=== PATIENT | female | born 1970 | race Caucasian/White ===

== ENCOUNTER → 2022-11-25 10:39 | Outpatient (CLI) | payer OTHER, SELFPAY | PROVIDERS: Visit Provider Registered Nurse | DX: R30.0 Dysuria (principal) | CPT/HCPCS: 87077; 87086; 87186 ==

== ENCOUNTER → 2023-03-16 14:54 | Outpatient (CLI) | payer OTHER, SELFPAY ==
--- NOTE | 2023-03-16 15:03 | DI.RAD.S_ITS ---
PROCEDURE: XR CHEST 2V INDICATIONS: reactive airways, pft's planned, xray baseline-interstital? TECHNIQUE: 2 views of the chest were acquired. COMPARISON: None. FINDINGS: Surgical changes and devices: None. Lungs and pleura: Lungs are clear. No pleural effusions or pneumothorax. Mediastinum: Mediastinal contours are normal. Heart size is normal. Bones and chest wall: No suspicious bony abnormalities. Soft tissues appear unremarkable. IMPRESSION: No acute cardiopulmonary disease. Dictated by: Sj Rodriguez [facility] Interpreted: Nickie Ruiz MD on 03/16/2023 at 15:45 Transcribed by: CELY on 03/16/2023 at 15:46 Approved by: Nickie Ruiz M.D. on 03/16/2023 at 17:04
[2023-03-16 15:31] LABS: Add Manual Diff / Slide Review NO; Basophils Absolute Auto 0 /uL (0-100); Basophils Percent Auto 0.5 % (0-2); Eosinophils Absolute Auto 300 /uL (0-450); Eosinophils Percent Auto 5.3 % (2-4); Hematocrit 40.1 % (36-46); Hemoglobin 13.4 g/dL (12.0-16.0); Lymphocytes Absolute Auto 1300 /uL (1100-4500); Lymphocytes Percent Auto 23.7 % (25-40); Mean Corpuscular HGB Conc 33.4 % (30-36); Mean Corpuscular Hemoglobin 28.3 PG (26-34); Mean Corpuscular Volume 84.9 fL (80-100); Monocytes Absolute Auto 400 /uL (0-900); Monocytes Percent Auto 7.6 % (3-14); Neutrophils Absolute Auto 3600 /uL (1500-7000); Neutrophils Percent Auto 62.9 % (50-75); Platelet Count 203 X10^3/uL (150-400); Red Blood Cell Count 4.72 X10^6/uL (4.0-5.2); Red Cell Distribution Width 13.8 % (11.6-14.8); White Blood Cell Count 5.7 X10^3/uL (4.5-11.0)
[2023-03-16 16:25] LABS: Alanine Aminotransferase 17 IU/L (<35); Albumin 4.2 g/dL (3.5-5.0); Albumin Globulin Ratio 1.1 (1.0-2.8); Alkaline Phosphatase 107 U/L (38-126); Aspartate Aminotransferase 28 IU/L (14-36); BUN Creatinine Ratio 23.4 (6-22); Bilirubin Total 0.5 mg/dL (0.2-1.3); Blood Urea Nitrogen 15 mg/dL (7-17); Calcium 9.2 mg/dL (8.4-10.2); Carbon Dioxide 33 mmol/L (22-32); Chloride 101 mmol/L (98-107); Estimated Glomerular Filt Rate > 60 mL/min (>60); Globulin 3.7 g/dL (1.7-4.1); Glucose 124 mg/dL (70-100); HEMOLYSIS 21 (0-50); Sodium 139 mmol/L (137-145); Total Protein 7.9 g/dL (6.3-8.2)
[2023-03-16 16:31] LABS: Potassium 5.5 mmol/L (3.4-5.1)
[2023-03-16 16:58] LABS: TSH w/ Reflex to FT4 1.67 uIU/mL (0.47-4.68)
[2023-03-16 20:30] LABS: Erythrocyte Sedimentation Rate 6 MM/HR (0-20)
== END ==
PROVIDERS: PCP Pediatrics; Referring Provider Pediatrics; Visit Provider Pediatrics
DX: J45.909 Unspecified asthma, uncomplicated (principal)
CPT/HCPCS: 36415; 71046; 80053; 84443; 85025; 85651

== ENCOUNTER → 2023-11-02 08:56 | Outpatient (CLI) | payer OTHER, SELFPAY ==
--- NOTE | 2023-11-02 08:58 | DI.RAD.S_ITS ---
PROCEDURE: XR KNEE LT 3V INDICATIONS: Left Knee Pain TECHNIQUE: 3 views of the knee were acquired. COMPARISON: None. FINDINGS: Bones: No fractures or dislocations. Mild tricompartmental spur and medial compartment joint space narrowing. No suspicious bony lesions. Soft tissues: Small joint effusion. No suspicious soft tissue calcifications. IMPRESSION: Mild early degenerative changes. No acute osseous abnormality. Dictated by: Papa Zimmerman M.D. on 11/02/2023 at 10:37 Approved by: Papa Zimmerman M.D. on 11/02/2023 at 10:38
[2023-11-02 13:56] LABS: Add Manual Diff / Slide Review NO; Basophils Absolute Auto 0 /uL (0-100); Basophils Percent Auto 0.6 % (0-2); Eosinophils Absolute Auto 100 /uL (0-450); Hematocrit 41.4 % (36-46); Hemoglobin 13.6 g/dL (12.0-16.0); Lymphocytes Absolute Auto 1400 /uL (1100-4500); Lymphocytes Percent Auto 31.6 % (25-40); Mean Corpuscular HGB Conc 32.9 % (30-36); Mean Corpuscular Hemoglobin 28.3 PG (26-34); Mean Corpuscular Volume 86.1 fL (80-100); Monocytes Absolute Auto 300 /uL (0-900); Monocytes Percent Auto 7.1 % (3-14); Neutrophils Absolute Auto 2700 /uL (1500-7000); Neutrophils Percent Auto 58.7 % (50-75); Platelet Count 184 X10^3/uL (150-400); Red Blood Cell Count 4.81 X10^6/uL (4.0-5.2); Red Cell Distribution Width 14.7 % (11.6-14.8); White Blood Cell Count 4.6 X10^3/uL (4.5-11.0)
[2023-11-02 14:53] LABS: Alanine Aminotransferase 16 IU/L (<35); Albumin 4.5 g/dL (3.5-5.0); Albumin Globulin Ratio 1.3 (1.0-2.8); Alkaline Phosphatase 72 U/L (38-126); Aspartate Aminotransferase 25 IU/L (14-36); Bilirubin Total 0.7 mg/dL (0.2-1.3); Blood Urea Nitrogen 14 mg/dL (7-17); Calcium 9.1 mg/dL (8.4-10.2); Carbon Dioxide 29 mmol/L (22-32); Chloride 100 mmol/L (98-107); Cholesterol 190 mg/dL (140-199); Estimated Glomerular Filt Rate > 60 mL/min (>60); Globulin 3.4 g/dL (1.7-4.1); Glucose 90 mg/dL (70-100); HDL Cholesterol 65 mg/dL (40-60); HEMOLYSIS < 15 (0-50); LDL Cholesterol Calculated 110 mg/dL (<100); Potassium 3.9 mmol/L (3.4-5.1); Sodium 137 mmol/L (137-145); Total Protein 7.9 g/dL (6.3-8.2); Triglycerides 76 mg/dL (35-150)
[2023-11-04 20:18] LABS: HIV 1 & 2 Ab/Ag 4th Gen Combo NEGATIVE (NEGATIVE); Hep C Virus Ab w/Reflex Quant NEGATIVE s/c (NEGATIVE)
== END ==
PROVIDERS: PCP Family Medicine; Referring Provider Family Medicine; Visit Provider Family Medicine
DX: M25.562 Pain in left knee (principal); Z11.4 Encounter for screening for human immunodeficiency virus [HIV]; I10 Essential (primary) hypertension; Z13.220 Encounter for screening for lipoid disorders; Z11.59 Encounter for screening for other viral diseases
CPT/HCPCS: 36415; 73562; 80053; 80061; 85025; 86803; 87389

== ENCOUNTER 2024-01-26 14:30 | Outpatient (RCR) | payer BC, SELFPAY ==
--- NOTE | 2023-12-02 17:04 | PT.OIE ---
Current Diagnoses Unilateral primary osteoarthritis, left knee (12/02/23) Past Medical History (Last Updated 11/02/23 @ 10:47 by Tristen Breaux MD) Actinic keratoses Chicken pox (~1973) Lyme disease (~2009) Reactive airway disease with wheezing Past Surgical History (Last Updated 11/21/23 @ 22:23 by Treasure Armenta MD) [place] teeth extracted Visit Care Team Role Provider Type Tristen Breaux MD Attending Provider Physician Family Provider Primary Care Provider Referring Provider Specialty: Family Practice Obstetrics Address: [address] [place], [place] [address], [facility] Email: [email or web address] Physical Therapy Initial Evaluation PT-OP-A Visit Information Start: 12/01/23 17:56 Freq: Status: Active Protocol: Document 12/02/23 08:15 NM (Rec: 12/02/23 11:54 NM [id number]) Out-Patient Physical Therapy Visit Information Visit Information Visit Type Initial Evaluation Visit Note 30 visits Visit Start Time 08:15 Visit Stop Time 09:00 Visit Number 1 Evaluation Information Evaluation Date 12/02/23 Precautions Precautions No twisting, limit squat depth and unstable surfaces PT-OP-B Current Condition Start: 12/01/23 17:56 Freq: Status: Active Protocol: Document 12/02/23 08:15 NM (Rec: 12/02/23 11:54 NM [id number]) Current Condition History of Current Condition Onset Date 6 months ago Current Complaints stiffness, pain History of Current Condition Pt presents with L medial knee pain. Original ZOILA believed to have occured about 2 years ago, she twisted her knee getting off of a bar stool. About 6 months ago, she began to have increased stiffness in her knee with sitting, unable to walk without pain. Pain occurs with sitting 15-20 minutes, then initial 15-20 min of walking afterward. Stiffness and pain improve with movement overall. Imaging reveals degeneration. Pain occasionally occurs down the posterior knee. She is an avid hiker about 3-4x/wk, but is currently unable to hike due to pain. Her occupation requires sitting for long periods of time. Most knee pain when sitting at at desk ( max 4 hrs before get up);pain is also worse with unstable surfaces, with knee hyperextension. Reports no feelings of instability, just stiff and painful Prior Treatments and Tests October 2022 Radiograph: degeneration Prior Functional Status Baseline Function- ADL's Independent Baseline Function- Mobility Independent Baseline Function- Recreation/Hobbies hike 3-4x/wk Current Functional Impairments (Reported) Functional Limitations- Mobility/Gait sit 15-20 min then knee is painful, initial 20 min of walking Functional Limitations- Work/School Pain when sitting at her desk at work PT-OP-C Subjective Start: 12/01/23 17:56 Freq: Status: Active Protocol: Document 12/02/23 08:15 NM (Rec: 12/02/23 11:54 NM [id number]) OP-PT Subjective Patient Comments Patient Comments see hx above for pt report Patient Questionnaires Lower Extremity Functional Scale LEFS Score 67/80 OP-PT Pain Assessment Location L knee Pain Location Details medial joint line Intensity 1 Scale Used Numeric (0 - 10) Description Aching,Sharp Description- Other sharp pain: 4; twinge Frequency Intermittent Pain Duration 15-20 min stops after movement Radiating Location prn posterior knee pain, medial to mid antunez with sitting Pain Aggravating Factors Standing,Sitting,Walking Other Pain Aggravating Factors squatting Pain Alleviating Factors Medication Other Pain Alleviating Factors creams, topical ointments PT-OP-D Balance Start: 12/01/23 17:56 Freq: Status: Active Protocol: Document 12/02/23 08:15 NM (Rec: 12/02/23 11:54 NM [id number]) Balance Tests Single Limb Standing Single Limb- Right 10 seconds Single Limb- Left 5 seconds; not painful but unstable Tandem Tandem Standing 8 seconds PT-OP-E Functional Tests Start: 12/01/23 17:56 Freq: Status: Active Protocol: Document 12/02/23 08:15 NM (Rec: 12/02/23 11:54 NM [id number]) Functional Tests Squat Test Score 10 squats Comments pain with depth, clicking, B valgus, hip rotation PT-OP-F Manual Assessment Start: 12/01/23 17:56 Freq: Status: Active Protocol: Document 12/02/23 08:15 NM (Rec: 12/02/23 11:54 NM [id number]) Manual Assessments Soft Tissue Assessment Soft Tissue Mobility Assessment Limited B hamstring length. Tenderness of medial knee muscles near joint line Joint Mobility Assessment Joint Mobility Assessment Increased clicking/popping with knee rotation, squatting. PT-OP-G Mobility & Gait Start: 12/01/23 17:56 Freq: Status: Active Protocol: Document 12/02/23 08:15 NM (Rec: 12/02/23 11:54 NM [id number]) OP Gait Assessment Gait Gait Assistance Required: Standby Assistance Distance (Feet) 200 Assistive Devices Assistive Device None Gait Deviations General Gait Pattern Antalgic Factors Limiting Gait Function Factors Limiting Gait Function Decreased Activity Tolerance, Decreased Strength,Pain Comments Gait Comments Decreased stance time LLE, no TKE. Antalgic Stair Climbing Evaluation Evaluation Level of Assist On Stairs Independent Devices Stair Climbing Assistive Devices None Technique/Endurance Stair Climbing Direction Ascend and Descend Stair Climbing Technique Step Over Step Number of Steps Climbed 4 Stair Climbing Set # Repetitions (reps) 1 Comments Stair Climbing Comments Pain with descent, valgus at knees PT-OP-H Neuro Start: 12/01/23 17:56 Freq: Status: Active Protocol: Document 12/02/23 08:15 NM (Rec: 12/02/23 11:54 NM [id number]) Sensation Evaluation Gross Sensation Gross Sensation WNL Comments Summary Comments BLE intact to light touch sensation PT-OP-J Posture/Palpation/Skin Start: 12/01/23 17:56 Freq: Status: Active Protocol: Document 12/02/23 08:15 NM (Rec: 12/02/23 11:54 NM [id number]) Posture Evaluation Position Standing Head/C-Spine Posture Forward Head Pelvis Posture Anteriorly Tilted Weight Distribution Decreased Wt.Bear on (L) Hip Posture (L) Externally Rotated,(R) Externally Rotated Knee Posture (L) Genu Valgus,(R) Genu Valgus Patellar Posture (L) Superior,(R) Superior Foot Arch (L) Medium Arch,(R) Medium Arch Toe Posture (L) Flexed Toes,(R) Flexed Toes Palpation Assessment Location L knee Palpation Location medial knee Palpation Findings Soft Tissue Tightness, Tenderness Palpation Details Medial joint line tenderness PT-OP-K Range of Motion Start: 12/01/23 17:56 Freq: Status: Active Protocol: Document 12/02/23 08:15 NM (Rec: 12/02/23 11:54 NM [id number]) Hip Goniometric Range of Motion Hip Right Flexion w/Knee Flexed 110 Straight Leg Raise 145 Internal Rotation 20 External Rotation 25 Left Flexion w/Knee Flexed 110 Straight Leg Raise 160 Internal Rotation 35 External Rotation 30 Knee Goniometric Range of Motion Knee Right Flexion Active (degrees) 140 Extension Active (degrees) 0 Left Flexion Active (degrees) 135 Extension Active (degrees) 3 Extension Passive (degrees) 0 Knee ROM Limitations Knee ROM Limitations Pain Comments Pain with hyperextension, end range flexion PT-OP-L Special Tests Start: 12/01/23 17:56 Freq: Status: Active Protocol: Document 12/02/23 08:15 NM (Rec: 12/02/23 11:54 NM [id number]) Special Tests Knee Special Tests Patellar Grind Test Test Results + Valgus Test Results - Comments 0, 30 deg Varus Test Results - Comments 0, 30 deg Posterior Draw Test Results - Posterior Sag Test Results - Nisa's Test Results - Anterior Draw Test Results - Apley's Compression Test Results + Kaela Test Test Results + PT-OP-M Strength Start: 12/01/23 17:56 Freq: Status: Active Protocol: Document 12/02/23 08:15 NM (Rec: 12/02/23 11:54 NM [id number]) Hip Strength Hip Manual Muscle Testing Right Flexion (L2) 4 Good Extension (S1) 4 Good Abduction 4 Good Adduction 4 Good External Rotation 4 Good Internal Rotation 4 Good Left Flexion (L2) 4 Good Extension (S1) 4 Good Abduction 4 Good Adduction 4 Good External Rotation 4 Good Internal Rotation 4 Good Knee Strength Knee Manual Muscle Testing Right Flexion (S2) 4+ Good+ Extension (L3) 4+ Good+ Left Flexion (S2) 4 Good Extension (L3) 4 Good Comments no pain Ankle/Foot Strength Ankle and Foot Manual Muscle Testing Right Dorsiflexion (L4) 4 Good Plantarflexion (S1) 4 Good Inversion 4 Good Eversion (S1) 4 Good Left Dorsiflexion (L4) 4 Good Plantarflexion (S1) 4 Good Inversion 4 Good Eversion (S1) 4 Good PT-OP-Q Treatments Start: 12/01/23 17:56 Freq: Status: Active Protocol: Document 12/02/23 08:15 NM (Rec: 12/02/23 11:54 NM [id number]) Self-Care/Home Management Treatment Education Patient Education Joint Protection,Pain Management,Safety Other Education 8 minutes: Educated on knee anatomy, role of meniscus during activity, and modalities for pain relief. Educated on limiting squat depth with ADLs to limit shear force on meniscus. Recommended more frequent rest breaks from sitting position, brief discussion over sitting ergonomics. Pt verbalizes agreement. PT-OP-T Assessment and Plan Start: 12/01/23 17:56 Freq: Status: Active Protocol: Document 12/02/23 08:15 NM (Rec: 12/02/23 11:54 NM [id number]) Physical Therapy Assessment Rehab Potential Rehabilitation Potential Good Evaluation Complexity Number of Personal Factors/Comorbidities 1-2 Number of Body Systems Impaired 1-2 Clinical Presentation at Evaluation Stable Impairments Impairments Activity Tolerance,Balance, Edema,Functional Activities, Functional Mobility,Gait, Integument,Pain,Posture,ROM, Sensation,Soft Tissue Mobility ,Strength,Transfers Goals Five Impairment AROM Impairment L knee extension -3 deg Long-Term Goal (LTG) Pt will achieve L terminal knee extension AROM of 0 deg in order to demonstrate improved L knee stability during gait, stairs, and ADLs. LTG Duration 8 weeks Four Impairment activity Impairment pain with ambulation, hiking for 20 minutes Long-Term Goal (LTG) Pt will report that she is able to ambulate or hike at least 30 minutes with L knee pain <4/10 in order to demonstrate improved activity tolerance LTG Duration 8 weeks Three Impairment balance Impairment SLS 8 sec LLE Short Term Goal (STG) Pt will improve L single leg stance to at least 15 seconds in order to demonstrate improved L knee stability during gait and hiking STG Duration 4 weeks Nursing Officer Goal (LTG) Pt will improve L single leg stance to at least 20 seconds in order to demonstrate improved L knee stability during gait and hiking LTG Duration 8 weeks Two Impairment function Impairment 10 squats Short Term Goal (STG) Pt will be able to perform at least 10 bilateral squats with pain <3/10 and without compensation in order to demonstrate increased BLE strength and stability for gait, ADLs STG Duration 4 weeks Nursing Officer Goal (LTG) Pt will be able to perform at least 10 bilateral squats without pain and without compensation in order to demonstrate increased BLE strength and stability for gait, ADLs LTG Duration 8 weeks One Impairment sitting Impairment pain with sitting 15-20 minutes Nursing Officer Goal (LTG) Pt will report that she is able to sit for at least 1 hour without L knee pain due to ergonomic changes at her desk, more frequent breaks in order to demonstrate improved QOL and activity tolerance. LTG Duration 8 weeks Assessment Summary Assessment Pt is a 53 y.o. female with L knee pain beginning several years ago and worsening over the last 6 months. Pain is worse in sitting for extended periods, ambulation, hiking. Pt presents with decrease L knee flexion and extension AROM compared to RLE, with worse pain with overpressure to end range flexion/extension . She is lacking terminal knee extension. Pt has no pain with resisted knee flex/ extension; however, L knee is weaker than R knee. She also demos weakness in B hip abductors and extensors. Squatting is painful at/below 80 deg, and pt compensates with hip rotation and knee valgus regardless of depth. 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 Pain is reproduced with L knee medial joint line palpation. Meniscus tests are positive and reproduce clicking. Other L knee ligament stability tests are negative. PT educated pt on exam findings, POC, and briefly on activity modification/sitting position at work in order to decrease pain symptoms. Recommended more frequent standing and walking breaks, changes in sitting posture. Pt verbalizes agreement. Depending on pt progress with PT and pain symptoms/knee stability, PT will refer back for additional imaging and referral to ortho . Pt would benefit from skilled PT for L knee strengthening, stabilization, and mobility in order to decrease pain symptoms, improve activity tolerance and return to PLOF. Physical Therapy Plan Frequency and Duration Frequency of Treatment 2x/Week Duration of treatment (weeks) 8 Plan of Care Start Date 12/02/23 Plan of Care End Date 01/28/24 Therapeutic Interventions Therapeutic Interventions Aquatic Therapy,Balance Training,Coordination Training ,Gait Training,Home Exercise Program,Joint Mobilizations, Manual Therapy,Neuromuscular Re-education,Orthotic/ Prosthetic Management,Patient/ Caregiver Education,Self-Care/ Home Management,Sensory Integration,Soft Tissue Mobilization,Taping, Therapeutic Activities, Therapeutic Exercises Modalities Cold Pack/Ice Massage,Electric Stimulation,Hot Packs, Ultrasound,Vasopneumatic Devices Next Visit Focus/Plan Next Note Type Treatment Note Next Visit Plan hip abd strength, extension, TKE without locking education acitvity modification Manual prn
--- NOTE | 2023-12-02 17:05 | PT.OPPOC ---
Physical, Occupational & Speech Therapy At [facility] Current Diagnoses Unilateral primary osteoarthritis, left knee (12/02/23) Visit Care Team Role Provider Type Tristen Breaux MD Attending Provider Physician Family Provider Primary Care Provider Referring Provider Specialty: Family Practice Obstetrics Address: [address] [place], [place] [address], [place], [address] Email: [email or web address] Plan Of Care PT-OP-T Assessment and Plan Start: 12/01/23 17:56 Freq: Status: Active Protocol: Document 12/02/23 08:15 NM (Rec: 12/02/23 11:54 NM [id number]) Physical Therapy Assessment Rehab Potential Rehabilitation Potential Good Evaluation Complexity Number of Personal Factors/Comorbidities 1-2 Number of Body Systems Impaired 1-2 Clinical Presentation at Evaluation Stable Impairments Impairments Activity Tolerance,Balance, Edema,Functional Activities, Functional Mobility,Gait, Integument,Pain,Posture,ROM, Sensation,Soft Tissue Mobility ,Strength,Transfers Goals Five Impairment AROM Impairment L knee extension -3 deg Mcc Goal (LTG) Pt will achieve L terminal knee extension AROM of 0 deg in order to demonstrate improved L knee stability during gait, stairs, and ADLs. LTG Duration 8 weeks Four Impairment activity Impairment pain with ambulation, hiking for 20 minutes Ground Wood Supervisor Goal (LTG) Pt will report that she is able to ambulate or hike at least 30 minutes with L knee pain <4/10 in order to demonstrate improved activity tolerance LTG Duration 8 weeks Three Impairment balance Impairment SLS 8 sec LLE Short Term Goal (STG) Pt will improve L single leg stance to at least 15 seconds in order to demonstrate improved L knee stability during gait and hiking STG Duration 4 weeks Ground Wood Supervisor Goal (LTG) Pt will improve L single leg stance to at least 20 seconds in order to demonstrate improved L knee stability during gait and hiking LTG Duration 8 weeks Two Impairment function Impairment 10 squats Short Term Goal (STG) Pt will be able to perform at least 10 bilateral squats with pain <3/10 and without compensation in order to demonstrate increased BLE strength and stability for gait, ADLs STG Duration 4 weeks Mcc Goal (LTG) Pt will be able to perform at least 10 bilateral squats without pain and without compensation in order to demonstrate increased BLE strength and stability for gait, ADLs LTG Duration 8 weeks One Impairment sitting Impairment pain with sitting 15-20 minutes Mcc Goal (LTG) Pt will report that she is able to sit for at least 1 hour without L knee pain due to ergonomic changes at her desk, more frequent breaks in order to demonstrate improved QOL and activity tolerance. LTG Duration 8 weeks Assessment Summary Assessment Pt is a 53 y.o. female with L knee pain beginning several years ago and worsening over the last 6 months. Pain is worse in sitting for extended periods, ambulation, hiking. Pt presents with decrease L knee flexion and extension AROM compared to RLE, with worse pain with overpressure to end range flexion/extension . She is lacking terminal knee extension. Pt has no pain with resisted knee flex/ extension; however, L knee is weaker than R knee. She also demos weakness in B hip abductors and extensors. Squatting is painful at/below 80 deg, and pt compensates with hip rotation and knee valgus regardless of depth. 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 Pain is reproduced with L knee medial joint line palpation. Meniscus tests are positive and reproduce clicking. Other L knee ligament stability tests are negative. PT educated pt on exam findings, POC, and briefly on activity modification/sitting position at work in order to decrease pain symptoms. Recommended more frequent standing and walking breaks, changes in sitting posture. Pt verbalizes agreement. Depending on pt progress with PT and pain symptoms/knee stability, PT will refer back for additional imaging and referral to ortho . Pt would benefit from skilled PT for L knee strengthening, stabilization, and mobility in order to decrease pain symptoms, improve activity tolerance and return to PLOF. Physical Therapy Plan Frequency and Duration Frequency of Treatment 2x/Week Duration of treatment (weeks) 8 Plan of Care Start Date 12/02/23 Plan of Care End Date 01/28/24 Therapeutic Interventions Therapeutic Interventions Aquatic Therapy,Balance Training,Coordination Training ,Gait Training,Home Exercise Program,Joint Mobilizations, Manual Therapy,Neuromuscular Re-education,Orthotic/ Prosthetic Management,Patient/ Caregiver Education,Self-Care/ Home Management,Sensory Integration,Soft Tissue Mobilization,Taping, Therapeutic Activities, Therapeutic Exercises Modalities Cold Pack/Ice Massage,Electric Stimulation,Hot Packs, Ultrasound,Vasopneumatic Devices Next Visit Focus/Plan Next Note Type Treatment Note Next Visit Plan hip abd strength, extension, TKE without locking education acitvity modification Manual prn Plan of Care Dates Plan of Care Start Date 12/02/23 Plan of Care End Date 01/28/24 Electronically Signed by: Evon Rivera, PT 12/06/23 0375 If you are in agreement with this Plan of Care, please return a signed and dated copy. I have reviewed this Plan of Care and certify that the skilled therapy services above are required to meet the patient?s needs. Physician Signature Date Printed Name and Credentials Clinical Instructor Signature Printed Name and Credentials
--- NOTE | 2023-12-07 13:37 | PT.OTN ---
Current Diagnoses Unilateral primary osteoarthritis, left knee (12/07/23) Physical Therapy Treatment Note PT-OP-A Visit Information Start: 12/01/23 17:56 Freq: Status: Active Protocol: Document 12/07/23 07:30 NM (Rec: 12/07/23 08:17 NM [id number]) Out-Patient Physical Therapy Visit Information Visit Information Visit Type Treatment Note Visit Note 30 visits Visit Start Time 07:32 Visit Stop Time 08:15 Visit Number 2 Evaluation Information Evaluation Date 12/02/23 Precautions Precautions No twisting, limit squat depth and unstable surfaces PT-OP-B Current Condition Start: 12/01/23 17:56 Freq: Status: Active Protocol: Document 12/02/23 08:15 NM (Rec: 12/02/23 11:54 NM [id number]) Current Condition History of Current Condition Onset Date 6 months ago Current Complaints stiffness, pain History of Current Condition Pt presents with L medial knee pain. Original ZOILA believed to have occured about 2 years ago, she twisted her knee getting off of a bar stool. About 6 months ago, she began to have increased stiffness in her knee with sitting, unable to walk without pain. Pain occurs with sitting 15-20 minutes, then initial 15-20 min of walking afterward. Stiffness and pain improve with movement overall. Imaging reveals degeneration. Pain occasionally occurs down the posterior knee. She is an avid hiker about 3-4x/wk, but is currently unable to hike due to pain. Her occupation requires sitting for long periods of time. Most knee pain when sitting at at desk ( max 4 hrs before get up);pain is also worse with unstable surfaces, with knee hyperextension. Reports no feelings of instability, just stiff and painful Prior Treatments and Tests October 2022 Radiograph: degeneration Prior Functional Status Baseline Function- ADL's Independent Baseline Function- Mobility Independent Baseline Function- Recreation/Hobbies hike 3-4x/wk Current Functional Impairments (Reported) Functional Limitations- Mobility/Gait sit 15-20 min then knee is painful, initial 20 min of walking Functional Limitations- Work/School Pain when sitting at her desk at work PT-OP-C Subjective Start: 12/01/23 17:56 Freq: Status: Active Protocol: Document 12/07/23 07:30 NM (Rec: 12/07/23 08:17 NM [id number]) OP-PT Subjective Patient Comments Patient Comments Pt reports 2/10 pain this morning in L knee, no change since IE. She is planning on going on a hike later today PT-OP-D Balance Start: 12/01/23 17:56 Freq: Status: Active Protocol: Document 12/02/23 08:15 NM (Rec: 12/02/23 11:54 NM [id number]) Balance Tests Single Limb Standing Single Limb- Right 10 seconds Single Limb- Left 5 seconds; not painful but unstable Tandem Tandem Standing 8 seconds PT-OP-E Functional Tests Start: 12/01/23 17:56 Freq: Status: Active Protocol: Document 12/02/23 08:15 NM (Rec: 12/02/23 11:54 NM [id number]) Functional Tests Squat Test Score 10 squats Comments pain with depth, clicking, B valgus, hip rotation PT-OP-F Manual Assessment Start: 12/01/23 17:56 Freq: Status: Active Protocol: Document 12/02/23 08:15 NM (Rec: 12/02/23 11:54 NM [id number]) Manual Assessments Soft Tissue Assessment Soft Tissue Mobility Assessment Limited B hamstring length. Tenderness of medial knee muscles near joint line Joint Mobility Assessment Joint Mobility Assessment Increased clicking/popping with knee rotation, squatting. PT-OP-G Mobility & Gait Start: 12/01/23 17:56 Freq: Status: Active Protocol: Document 12/02/23 08:15 NM (Rec: 12/02/23 11:54 NM [id number]) OP Gait Assessment Gait Gait Assistance Required: Standby Assistance Distance (Feet) 200 Assistive Devices Assistive Device None Gait Deviations General Gait Pattern Antalgic Factors Limiting Gait Function Factors Limiting Gait Function Decreased Activity Tolerance, Decreased Strength,Pain Comments Gait Comments Decreased stance time LLE, no TKE. Antalgic Stair Climbing Evaluation Evaluation Level of Assist On Stairs Independent Devices Stair Climbing Assistive Devices None Technique/Endurance Stair Climbing Direction Ascend and Descend Stair Climbing Technique Step Over Step Number of Steps Climbed 4 Stair Climbing Set # Repetitions (reps) 1 Comments Stair Climbing Comments Pain with descent, valgus at knees PT-OP-H Neuro Start: 12/01/23 17:56 Freq: Status: Active Protocol: Document 12/02/23 08:15 NM (Rec: 12/02/23 11:54 NM [id number]) Sensation Evaluation Gross Sensation Gross Sensation WNL Comments Summary Comments BLE intact to light touch sensation PT-OP-J Posture/Palpation/Skin Start: 12/01/23 17:56 Freq: Status: Active Protocol: Document 12/02/23 08:15 NM (Rec: 12/02/23 11:54 NM [id number]) Posture Evaluation Position Standing Head/C-Spine Posture Forward Head Pelvis Posture Anteriorly Tilted Weight Distribution Decreased Wt.Bear on (L) Hip Posture (L) Externally Rotated,(R) Externally Rotated Knee Posture (L) Genu Valgus,(R) Genu Valgus Patellar Posture (L) Superior,(R) Superior Foot Arch (L) Medium Arch,(R) Medium Arch Toe Posture (L) Flexed Toes,(R) Flexed Toes Palpation Assessment Location L knee Palpation Location medial knee Palpation Findings Soft Tissue Tightness, Tenderness Palpation Details Medial joint line tenderness PT-OP-K Range of Motion Start: 12/01/23 17:56 Freq: Status: Active Protocol: Document 12/02/23 08:15 NM (Rec: 12/02/23 11:54 NM [id number]) Hip Goniometric Range of Motion Hip Right Flexion w/Knee Flexed 110 Straight Leg Raise 145 Internal Rotation 20 External Rotation 25 Left Flexion w/Knee Flexed 110 Straight Leg Raise 160 Internal Rotation 35 External Rotation 30 Knee Goniometric Range of Motion Knee Right Flexion Active (degrees) 140 Extension Active (degrees) 0 Left Flexion Active (degrees) 135 Extension Active (degrees) 3 Extension Passive (degrees) 0 Knee ROM Limitations Knee ROM Limitations Pain Comments Pain with hyperextension, end range flexion PT-OP-L Special Tests Start: 12/01/23 17:56 Freq: Status: Active Protocol: Document 12/02/23 08:15 NM (Rec: 12/02/23 11:54 NM [id number]) Special Tests Knee Special Tests Patellar Grind Test Test Results + Valgus Test Results - Comments 0, 30 deg Varus Test Results - Comments 0, 30 deg Posterior Draw Test Results - Posterior Sag Test Results - Nisa's Test Results - Anterior Draw Test Results - Apley's Compression Test Results + Kaela Test Test Results + PT-OP-M Strength Start: 12/01/23 17:56 Freq: Status: Active Protocol: Document 12/02/23 08:15 NM (Rec: 12/02/23 11:54 NM [id number]) Hip Strength Hip Manual Muscle Testing Right Flexion (L2) 4 Good Extension (S1) 4 Good Abduction 4 Good Adduction 4 Good External Rotation 4 Good Internal Rotation 4 Good Left Flexion (L2) 4 Good Extension (S1) 4 Good Abduction 4 Good Adduction 4 Good External Rotation 4 Good Internal Rotation 4 Good Knee Strength Knee Manual Muscle Testing Right Flexion (S2) 4+ Good+ Extension (L3) 4+ Good+ Left Flexion (S2) 4 Good Extension (L3) 4 Good Comments no pain Ankle/Foot Strength Ankle and Foot Manual Muscle Testing Right Dorsiflexion (L4) 4 Good Plantarflexion (S1) 4 Good Inversion 4 Good Eversion (S1) 4 Good Left Dorsiflexion (L4) 4 Good Plantarflexion (S1) 4 Good Inversion 4 Good Eversion (S1) 4 Good PT-OP-Q Treatments Start: 12/01/23 17:56 Freq: Status: Active Protocol: Document 12/07/23 07:30 NM (Rec: 12/07/23 08:17 NM [id number]) Cardio Equipment Bicycle (Upright) Duration (Minutes) 4 Resistance 7 Seat Position 7 Other warm up; reports no pain in L knee Therapeutic Exercises Supine Exercises single leg bridge Supine Exercise Name trialed in PT Side bilateral Reps/Minutes 2x5 Comments cued for level pelvis; reports cramping after sets SAQ Supine Exercise Name trialed: for TKE Side left Resistance AROM with brief hold Equipment Used over foam roller Reps/Minutes 1x10 with 5 hold Comments reports easy; no pain with TKE as long as doesn't hyperext, easy straight leg raise Supine Exercise Name neutral hip Side left Resistance AROM with brief hold Reps/Minutes 2x10 with brief pause at top Comments for TKE; reports medium difficulty; reports no pain Sidelying Exercises hip abduction Sidelying Exercise Name with hip IR for glute medius; added to HEP Side left Resistance AROM with brief hold Equipment Used with slight hip ext Reps/Minutes 2x10 Comments cued for no hip rotation, slow controlled movement Sitting Exercises LAQ Sitting Exercise Name added to HEP Side left Resistance lvl 2 teal band Equipment Used band tied behind table Reps/Minutes 2x10 Comments cued TKE; demos slight lateral patellar tracking, no pain Standing Exercises wall squat Standing Exercise Name 60 deg knee flex Side left Equipment Used wall Reps/Minutes 2x30 Comments reports slight pull on medial knee next to patella TKE Standing Exercise Name added to HEP Side left Equipment Used standing against wall, towel roll behind knee Reps/Minutes 1x10 with 5 hold Comments cued for quad set, min knee flex to limit HS/glute hamstring stretch Standing Exercise Name before/after bridges Side bilateral Reps/Minutes 1x30 Comments reports decreased hamstring cramps Other Exercises Foam roller Other Exercise Name hamstring, calf, quad STM Side left Equipment Used full foam roller, mat on floor Reps/Minutes 2 Comments feels really good Manual Therapy Treatment Soft Tissue Mobilization L thigh Body Location quad, hamstring, adductor, TFL Mobilization Type Rolling,Sustained Pressure Intensity/Depth Superficial Body Position Hooklying Comments Increased hamstring tightness, TFL. No tenderness Joint Mobilizations L knee Joint patellar mobilizations Direction S-I, M-L Grade II Body Position Supine Reps/Duration 1x10 ea Comments Decreased mobility M, I. Tends to track laterally Self-Care/Home Management Treatment Education Patient Education Home Exercise Program,Joint Protection Other Education HEP: straight leg raise, sidelying hip abduction, TKE against wall, LAQ. Educated on modalities for pain management especially following activity. PT educated pt on taking frequent standing and walking breaks at work, minimum 1x/hr to decrease frequency of sitting. Educated also on safety, not overdoing it on hike later, being aware of body's limitations and pain levels. PT-OP-T Assessment and Plan Start: 12/01/23 17:56 Freq: Status: Active Protocol: Document 12/07/23 07:30 NM (Rec: 12/07/23 08:17 NM [id number]) Physical Therapy Assessment Goals Five Impairment AROM Impairment L knee extension -3 deg Assisted Goal (LTG) Pt will achieve L terminal knee extension AROM of 0 deg in order to demonstrate improved L knee stability during gait, stairs, and ADLs. LTG Duration 8 weeks Four Impairment activity Impairment pain with ambulation, hiking for 20 minutes Assisted Goal (LTG) Pt will report that she is able to ambulate or hike at least 30 minutes with L knee pain <4/10 in order to demonstrate improved activity tolerance LTG Duration 8 weeks Three Impairment balance Impairment SLS 8 sec LLE Short Term Goal (STG) Pt will improve L single leg stance to at least 15 seconds in order to demonstrate improved L knee stability during gait and hiking STG Duration 4 weeks Senior [employer] Goal (LTG) Pt will improve L single leg stance to at least 20 seconds in order to demonstrate improved L knee stability during gait and hiking LTG Duration 8 weeks Two Impairment function Impairment 10 squats Short Term Goal (STG) Pt will be able to perform at least 10 bilateral squats with pain <3/10 and without compensation in order to demonstrate increased BLE strength and stability for gait, ADLs STG Duration 4 weeks Assisted Goal (LTG) Pt will be able to perform at least 10 bilateral squats without pain and without compensation in order to demonstrate increased BLE strength and stability for gait, ADLs LTG Duration 8 weeks One Impairment sitting Impairment pain with sitting 15-20 minutes 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 LTG Duration 8 weeks Assessment Summary Assessment Pt tolerated session well without any increased L knee pain except pulling during standing wall squats. Trialed wall squats at at/above 60 deg knee flexion with feet forward for more glute activation and less tibial translation over toes. Pt challenged with squat, but able to maintain equal weight bearing. Initiated hip and quad strengthening. Pt demos weakness of B hip abductors, glutes, and quads; she is able to perform exercises with minimal cueing for correct form, but requires frequent cues for eccentric control. Initiated seated LAQ and standing terminal knee ext to retrain quad and emphasize correct knee extension without hyperextension. Pt cued to limit knee hyperextension in order to promote improved quad contorl and facilitation over knee ligaments. Educated on limiting hyperext, frequent breaks at work for pain reduction. PT asked pt to take photo of workspace to address any ergonomic influences on knee pain. Initiated manual treatment to address limitations in patellar movement, improve soft tissue restrictions. Pt particularly limited in L hamstring length likely due to frequent sitting . Pt would benefit from skilled PT to address L hip/ quad strength and stability in order to decrease pain symptoms and improve activity tolerance. Physical Therapy Plan Frequency and Duration Frequency of Treatment 2x/Week Duration of treatment (weeks) 8 Plan of Care Start Date 12/02/23 Plan of Care End Date 01/28/24 Therapeutic Interventions Therapeutic Interventions Aquatic Therapy,Balance Training,Coordination Training ,Gait Training,Home Exercise Program,Joint Mobilizations, Manual Therapy,Neuromuscular Re-education,Orthotic/ Prosthetic Management,Patient/ Caregiver Education,Self-Care/ Home Management,Sensory Integration,Soft Tissue Mobilization,Taping, Therapeutic Activities, Therapeutic Exercises Modalities Cold Pack/Ice Massage,Electric Stimulation,Hot Packs, Ultrasound,Vasopneumatic Devices Next Visit Focus/Plan Next Note Type Treatment Note Next Visit Plan Progress LAQ, retrain squat at limited depth, hip abduction (trial side steps), glute strengthening, leg press? at low resistance education activity modification, gait training prn Manual: patellar, STM, knee mob prn
--- NOTE | 2023-12-09 08:17 | PT.OTN ---
Current Diagnoses Unilateral primary osteoarthritis, left knee (12/09/23) Weakness (12/09/23) Physical Therapy Treatment Note PT-OP-A Visit Information Start: 12/01/23 17:56 Freq: Status: Active Protocol: Document 12/09/23 07:32 SP (Rec: 12/09/23 08:20 SP [id number]) Out-Patient Physical Therapy Visit Information Visit Information Visit Type Treatment Note Visit Note 12/31 visits Visit Start Time 07:32 Visit Stop Time 08:17 Visit Number 3 Number of IMMIGRATION SPECIALIST Visits 1 Evaluation Information Evaluation Date 12/02/23 Precautions Precautions No twisting, limit squat depth and unstable surfaces PT-OP-B Current Condition Start: 12/01/23 17:56 Freq: Status: Active Protocol: Document 12/02/23 08:15 NM (Rec: 12/02/23 11:54 NM [id number]) Current Condition History of Current Condition Onset Date 6 months ago Current Complaints stiffness, pain History of Current Condition Pt presents with L medial knee pain. Original ZOILA believed to have occured about 2 years ago, she twisted her knee getting off of a bar stool. About 6 months ago, she began to have increased stiffness in her knee with sitting, unable to walk without pain. Pain occurs with sitting 15-20 minutes, then initial 15-20 min of walking afterward. Stiffness and pain improve with movement overall. Imaging reveals degeneration. Pain occasionally occurs down the posterior knee. She is an avid hiker about 3-4x/wk, but is currently unable to hike due to pain. Her occupation requires sitting for long periods of time. Most knee pain when sitting at at desk ( max 4 hrs before get up);pain is also worse with unstable surfaces, with knee hyperextension. Reports no feelings of instability, just stiff and painful Prior Treatments and Tests October 2022 Radiograph: degeneration Prior Functional Status Baseline Function- ADL's Independent Baseline Function- Mobility Independent Baseline Function- Recreation/Hobbies hike 3-4x/wk Current Functional Impairments (Reported) Functional Limitations- Mobility/Gait sit 15-20 min then knee is painful, initial 20 min of walking Functional Limitations- Work/School Pain when sitting at her desk at work PT-OP-C Subjective Start: 12/01/23 17:56 Freq: Status: Active Protocol: Document 12/09/23 07:32 SP (Rec: 12/09/23 08:20 SP [id number]) OP-PT Subjective Patient Comments Patient Comments Pt reports she went on 4 miles around [employer] and felt fine but was really sore and painful next day. She stated tried performing HEP and end range painful. She reports didn't do any stretching or rolling post for recovery. She does have small stationary LE peddles device and found helpful for ROM home carryover . Her pain in pesancerine and medial distal HS into QS. PT-OP-D Balance Start: 12/01/23 17:56 Freq: Status: Active Protocol: Document 12/02/23 08:15 NM (Rec: 12/02/23 11:54 NM [id number]) Balance Tests Single Limb Standing Single Limb- Right 10 seconds Single Limb- Left 5 seconds; not painful but unstable Tandem Tandem Standing 8 seconds PT-OP-E Functional Tests Start: 12/01/23 17:56 Freq: Status: Active Protocol: Document 12/02/23 08:15 NM (Rec: 12/02/23 11:54 NM [id number]) Functional Tests Squat Test Score 10 squats Comments pain with depth, clicking, B valgus, hip rotation PT-OP-F Manual Assessment Start: 12/01/23 17:56 Freq: Status: Active Protocol: Document 12/02/23 08:15 NM (Rec: 12/02/23 11:54 NM [id number]) Manual Assessments Soft Tissue Assessment Soft Tissue Mobility Assessment Limited B hamstring length. Tenderness of medial knee muscles near joint line Joint Mobility Assessment Joint Mobility Assessment Increased clicking/popping with knee rotation, squatting. PT-OP-G Mobility & Gait Start: 12/01/23 17:56 Freq: Status: Active Protocol: Document 12/02/23 08:15 NM (Rec: 12/02/23 11:54 NM [id number]) OP Gait Assessment Gait Gait Assistance Required: Standby Assistance Distance (Feet) 200 Assistive Devices Assistive Device None Gait Deviations General Gait Pattern Antalgic Factors Limiting Gait Function Factors Limiting Gait Function Decreased Activity Tolerance, Decreased Strength,Pain Comments Gait Comments Decreased stance time LLE, no TKE. Antalgic Stair Climbing Evaluation Evaluation Level of Assist On Stairs Independent Devices Stair Climbing Assistive Devices None Technique/Endurance Stair Climbing Direction Ascend and Descend Stair Climbing Technique Step Over Step Number of Steps Climbed 4 Stair Climbing Set # Repetitions (reps) 1 Comments Stair Climbing Comments Pain with descent, valgus at knees PT-OP-H Neuro Start: 12/01/23 17:56 Freq: Status: Active Protocol: Document 12/02/23 08:15 NM (Rec: 12/02/23 11:54 NM [id number]) Sensation Evaluation Gross Sensation Gross Sensation WNL Comments Summary Comments BLE intact to light touch sensation PT-OP-J Posture/Palpation/Skin Start: 12/01/23 17:56 Freq: Status: Active Protocol: Document 12/02/23 08:15 NM (Rec: 12/02/23 11:54 NM [id number]) Posture Evaluation Position Standing Head/C-Spine Posture Forward Head Pelvis Posture Anteriorly Tilted Weight Distribution Decreased Wt.Bear on (L) Hip Posture (L) Externally Rotated,(R) Externally Rotated Knee Posture (L) Genu Valgus,(R) Genu Valgus Patellar Posture (L) Superior,(R) Superior Foot Arch (L) Medium Arch,(R) Medium Arch Toe Posture (L) Flexed Toes,(R) Flexed Toes Palpation Assessment Location L knee Palpation Location medial knee Palpation Findings Soft Tissue Tightness, Tenderness Palpation Details Medial joint line tenderness PT-OP-K Range of Motion Start: 12/01/23 17:56 Freq: Status: Active Protocol: Document 12/02/23 08:15 NM (Rec: 12/02/23 11:54 NM [id number]) Hip Goniometric Range of Motion Hip Right Flexion w/Knee Flexed 110 Straight Leg Raise 145 Internal Rotation 20 External Rotation 25 Left Flexion w/Knee Flexed 110 Straight Leg Raise 160 Internal Rotation 35 External Rotation 30 Knee Goniometric Range of Motion Knee Right Flexion Active (degrees) 140 Extension Active (degrees) 0 Left Flexion Active (degrees) 135 Extension Active (degrees) 3 Extension Passive (degrees) 0 Knee ROM Limitations Knee ROM Limitations Pain Comments Pain with hyperextension, end range flexion PT-OP-L Special Tests Start: 12/01/23 17:56 Freq: Status: Active Protocol: Document 12/02/23 08:15 NM (Rec: 12/02/23 11:54 NM [id number]) Special Tests Knee Special Tests Patellar Grind Test Test Results + Valgus Test Results - Comments 0, 30 deg Varus Test Results - Comments 0, 30 deg Posterior Draw Test Results - Posterior Sag Test Results - Nisa's Test Results - Anterior Draw Test Results - Apley's Compression Test Results + Kaela Test Test Results + PT-OP-M Strength Start: 12/01/23 17:56 Freq: Status: Active Protocol: Document 12/02/23 08:15 NM (Rec: 12/02/23 11:54 NM [id number]) Hip Strength Hip Manual Muscle Testing Right Flexion (L2) 4 Good Extension (S1) 4 Good Abduction 4 Good Adduction 4 Good External Rotation 4 Good Internal Rotation 4 Good Left Flexion (L2) 4 Good Extension (S1) 4 Good Abduction 4 Good Adduction 4 Good External Rotation 4 Good Internal Rotation 4 Good Knee Strength Knee Manual Muscle Testing Right Flexion (S2) 4+ Good+ Extension (L3) 4+ Good+ Left Flexion (S2) 4 Good Extension (L3) 4 Good Comments no pain Ankle/Foot Strength Ankle and Foot Manual Muscle Testing Right Dorsiflexion (L4) 4 Good Plantarflexion (S1) 4 Good Inversion 4 Good Eversion (S1) 4 Good Left Dorsiflexion (L4) 4 Good Plantarflexion (S1) 4 Good Inversion 4 Good Eversion (S1) 4 Good PT-OP-Q Treatments Start: 12/01/23 17:56 Freq: Status: Active Protocol: Document 12/09/23 07:32 SP (Rec: 12/09/23 08:20 SP [id number]) Cardio Equipment Bicycle (Upright) Duration (Minutes) 6 Resistance 7 Seat Position 7 Other warm up; reports no pain in L knee Therapeutic Exercises Supine Exercises single leg bridge Supine Exercise Name reviewed HEP Side bilateral Reps/Minutes x10 Comments cued for level pelvis; good glut fac /c foot closer to SAQ Supine Exercise Name TKE- HEP reviewed Side left Resistance AROM Equipment Used over foam roller Reps/Minutes 10 with 10 hold Comments reports easy; no pain with TKE as long as doesn't hyperext, easy straight leg raise Supine Exercise Name 10 o'clock- reviewed for HEP Side left Resistance AROM with brief hold Reps/Minutes 2x10 with brief pause at top Comments for TKE mid quad tiring, diminished pes ancerine and dis HS discomfort Sidelying Exercises hip abduction Sidelying Exercise Name with hip IR for glute medius; reviewed HEP Side left Resistance AROM with brief hold Equipment Used stacked on side, kickstand top UE on table Reps/Minutes 2x15 Comments cued for no hip ext&rotation, slow controlled movement Standing Exercises hamstring stretch Standing Exercise Name end ther ex Side bilateral Reps/Minutes 1x30 Comments good HS stretch: fwd/med/lat Other Exercises self STMs Other Exercise Name added to HEP: rolling pin seated, ball prox HS on firm surface Side left Equipment Used (no foam roller home) Reps/Minutes 4 min total Comments good response Manual Therapy Treatment Soft Tissue Mobilization L thigh Body Location quad, hamstring, adductor, TFL Mobilization Type Rolling,Sustained Pressure Intensity/Depth Superficial Body Position Hooklying Comments Increased hamstring tightness, TFL. No tenderness Joint Mobilizations L knee Joint patellar mobilizations, tibfemoral Direction S-I, M-L, lateral tilt; AP/PA Grade II Body Position Supine Reps/Duration 1x10 ea Comments Decreased mobility M, I. Tends to track laterally PT-OP-T Assessment and Plan Start: 12/01/23 17:56 Freq: Status: Active Protocol: Document 12/09/23 07:32 SP (Rec: 12/09/23 08:20 SP [id number]) Physical Therapy Assessment Goals Five Impairment AROM Impairment L knee extension -3 deg Operation Shift Supervisor Goal (LTG) Pt will achieve L terminal knee extension AROM of 0 deg in order to demonstrate improved L knee stability during gait, stairs, and ADLs. LTG Duration 8 weeks Four Impairment activity Impairment pain with ambulation, hiking for 20 minutes Retirement Goal (LTG) Pt will report that she is able to ambulate or hike at least 30 minutes with L knee pain <4/10 in order to demonstrate improved activity tolerance LTG Duration 8 weeks Three Impairment balance Impairment SLS 8 sec LLE Short Term Goal (STG) Pt will improve L single leg stance to at least 15 seconds in order to demonstrate improved L knee stability during gait and hiking STG Duration 4 weeks Retirement Goal (LTG) Pt will improve L single leg stance to at least 20 seconds in order to demonstrate improved L knee stability during gait and hiking LTG Duration 8 weeks Two Impairment function Impairment 10 squats Short Term Goal (STG) Pt will be able to perform at least 10 bilateral squats with pain <3/10 and without compensation in order to demonstrate increased BLE strength and stability for gait, ADLs STG Duration 4 weeks Retirement Goal (LTG) Pt will be able to perform at least 10 bilateral squats without pain and without compensation in order to demonstrate increased BLE strength and stability for gait, ADLs LTG Duration 8 weeks One Impairment sitting Impairment pain with sitting 15-20 minutes Operation Shift Supervisor Goal (LTG) Pt will report that she is able to sit for at least 1 hour without L knee pain due to ergonomic changes at her desk, more frequent breaks in order to demonstrate improved QOL and activity tolerance. LTG Duration 8 weeks Assessment Summary Assessment Pt responded well to ed review self manual and use rolling pin due to no foam roller home . Ed for assist recovery after tiring activities such as mileage hiking and mindful of ease progression. Good effort no pain during against gravity ther ex review. Didn't add more due to still recoverying from long hike. Good response HS stretch end tx for addition during hikes. Pt stated felt better when leaving. Physical Therapy Plan Frequency and Duration Frequency of Treatment 2x/Week Duration of treatment (weeks) 8 Plan of Care Start Date 12/02/23 Plan of Care End Date 01/28/24 Therapeutic Interventions Therapeutic Interventions Aquatic Therapy,Balance Training,Coordination Training ,Gait Training,Home Exercise Program,Joint Mobilizations, Manual Therapy,Neuromuscular Re-education,Orthotic/ Prosthetic Management,Patient/ Caregiver Education,Self-Care/ Home Management,Sensory Integration,Soft Tissue Mobilization,Taping, Therapeutic Activities, Therapeutic Exercises Modalities Cold Pack/Ice Massage,Electric Stimulation,Hot Packs, Ultrasound,Vasopneumatic Devices Next Visit Focus/Plan Next Note Type Treatment Note Next Visit Plan Progress LAQ, retrain squat at limited depth, hip abduction (trial side steps), glute strengthening, leg press? at low resistance education activity modification, gait training prn Manual: patellar, STM, knee mob prn
--- NOTE | 2023-12-15 08:15 | PT.OTN ---
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 Original ZOILA believed to have occured about 2 years ago, she twisted her knee getting off of a bar stool. About 6 months ago, she began to have increased stiffness in her knee with sitting, unable to walk without pain. Pain occurs with sitting 15-20 minutes, then initial 15-20 min of walking afterward. Stiffness and pain improve with movement overall. Imaging reveals degeneration. Pain occasionally occurs down the posterior knee. She is an avid hiker about 3-4x/wk, but is currently unable to hike due to pain. Her occupation requires sitting for long periods of time. Most knee pain when sitting at at desk ( max 4 hrs before get up);pain is also worse with unstable surfaces, with knee hyperextension. Reports no feelings of instability, just stiff and painful Prior Treatments and Tests October 2022 Radiograph: degeneration Prior Functional Status Baseline Function- ADL's Independent Baseline Function- Mobility Independent Baseline Function- Recreation/Hobbies hike 3-4x/wk Current Functional Impairments (Reported) Functional Limitations- Mobility/Gait sit 15-20 min then knee is painful, initial 20 min of walking Functional Limitations- Work/School Pain when sitting at her desk at work PT-OP-C Subjective Start: 12/01/23 17:56 Freq: Status: Active Protocol: Document 12/15/23 07:33 SP (Rec: 12/15/23 08:19 SP [id number]) OP-PT Subjective Patient Comments Patient Comments Pt reports felt pretty good after last tx. Didn't get to do ex every day but no adverse affects. She hasnt' been walking lately but does ride stationary bike for 3-5 min warm up pre ex. PT-OP-D Balance Start: 12/01/23 17:56 Freq: Status: Active Protocol: Document 12/02/23 08:15 NM (Rec: 12/02/23 11:54 NM [id number]) Balance Tests Single Limb Standing Single Limb- Right 10 seconds Single Limb- Left 5 seconds; not painful but unstable Tandem Tandem Standing 8 seconds PT-OP-E Functional Tests Start: 12/01/23 17:56 Freq: Status: Active Protocol: Document 12/02/23 08:15 NM (Rec: 12/02/23 11:54 NM [id number]) Functional Tests Squat Test Score 10 squats Comments pain with depth, clicking, B valgus, hip rotation PT-OP-F Manual Assessment Start: 12/01/23 17:56 Freq: Status: Active Protocol: Document 12/02/23 08:15 NM (Rec: 12/02/23 11:54 NM [id number]) Manual Assessments Soft Tissue Assessment Soft Tissue Mobility Assessment Limited B hamstring length. Tenderness of medial knee muscles near joint line Joint Mobility Assessment Joint Mobility Assessment Increased clicking/popping with knee rotation, squatting. PT-OP-G Mobility & Gait Start: 12/01/23 17:56 Freq: Status: Active Protocol: Document 12/02/23 08:15 NM (Rec: 12/02/23 11:54 NM [id number]) OP Gait Assessment Gait Gait Assistance Required: Standby Assistance Distance (Feet) 200 Assistive Devices Assistive Device None Gait Deviations General Gait Pattern Antalgic Factors Limiting Gait Function Factors Limiting Gait Function Decreased Activity Tolerance, Decreased Strength,Pain Comments Gait Comments Decreased stance time LLE, no TKE. Antalgic Stair Climbing Evaluation Evaluation Level of Assist On Stairs Independent Devices Stair Climbing Assistive Devices None Technique/Endurance Stair Climbing Direction Ascend and Descend Stair Climbing Technique Step Over Step Number of Steps Climbed 4 Stair Climbing Set # Repetitions (reps) 1 Comments Stair Climbing Comments Pain with descent, valgus at knees PT-OP-H Neuro Start: 02/28/24 17:56 Freq: Status: Active Protocol: Document 12/02/23 08:15 NM (Rec: 12/02/23 11:54 NM [id number]) Sensation Evaluation Gross Sensation Gross Sensation WNL Comments Summary Comments BLE intact to light touch sensation PT-OP-J Posture/Palpation/Skin Start: 12/01/23 17:56 Freq: Status: Active Protocol: Document 12/02/23 08:15 NM (Rec: 12/02/23 11:54 NM [id number]) Posture Evaluation Position Standing Head/C-Spine Posture Forward Head Pelvis Posture Anteriorly Tilted Weight Distribution Decreased Wt.Bear on (L) Hip Posture (L) Externally Rotated,(R) Externally Rotated Knee Posture (L) Genu Valgus,(R) Genu Valgus Patellar Posture (L) Superior,(R) Superior Foot Arch (L) Medium Arch,(R) Medium Arch Toe Posture (L) Flexed Toes,(R) Flexed Toes Palpation Assessment Location L knee Palpation Location medial knee Palpation Findings Soft Tissue Tightness, Tenderness Palpation Details Medial joint line tenderness PT-OP-K Range of Motion Start: 12/01/23 17:56 Freq: Status: Active Protocol: Document 12/02/23 08:15 NM (Rec: 12/02/23 11:54 NM [id number]) Hip Goniometric Range of Motion Hip Right Flexion w/Knee Flexed 110 Straight Leg Raise 145 Internal Rotation 20 External Rotation 25 Left Flexion w/Knee Flexed 110 Straight Leg Raise 160 Internal Rotation 35 External Rotation 30 Knee Goniometric Range of Motion Knee Right Flexion Active (degrees) 140 Extension Active (degrees) 0 Left Flexion Active (degrees) 135 Extension Active (degrees) 3 Extension Passive (degrees) 0 Knee ROM Limitations Knee ROM Limitations Pain Comments Pain with hyperextension, end range flexion PT-OP-L Special Tests Start: 12/01/23 17:56 Freq: Status: Active Protocol: Document 12/02/23 08:15 NM (Rec: 12/02/23 11:54 NM [id number]) Special Tests Knee Special Tests Patellar Grind Test Test Results + Valgus Test Results - Comments 0, 30 deg Varus Test Results - Comments 0, 30 deg Posterior Draw Test Results - Posterior Sag Test Results - Nisa's Test Results - Anterior Draw Test Results - Apley's Compression Test Results + Kaela Test Test Results + PT-OP-M Strength Start: 12/01/23 17:56 Freq: Status: Active Protocol: Document 12/02/23 08:15 NM (Rec: 12/02/23 11:54 NM [id number]) Hip Strength Hip Manual Muscle Testing Right Flexion (L2) 4 Good Extension (S1) 4 Good Abduction 4 Good Adduction 4 Good External Rotation 4 Good Internal Rotation 4 Good Left Flexion (L2) 4 Good Extension (S1) 4 Good Abduction 4 Good Adduction 4 Good External Rotation 4 Good Internal Rotation 4 Good Knee Strength Knee Manual Muscle Testing Right Flexion (S2) 4+ Good+ Extension (L3) 4+ Good+ Left Flexion (S2) 4 Good Extension (L3) 4 Good Comments no pain Ankle/Foot Strength Ankle and Foot Manual Muscle Testing Right Dorsiflexion (L4) 4 Good Plantarflexion (S1) 4 Good Inversion 4 Good Eversion (S1) 4 Good Left Dorsiflexion (L4) 4 Good Plantarflexion (S1) 4 Good Inversion 4 Good Eversion (S1) 4 Good PT-OP-Q Treatments Start: 12/01/23 17:56 Freq: Status: Active Protocol: Document 12/15/23 07:33 SP (Rec: 12/15/23 08:19 SP [id number]) Cardio Equipment Elliptical Duration (Minutes) 4 Resistance 4 Other cued long strides, wt shift into advance stance leg allow ext/not lock- imp Gym Equipment Cable Column (Body Solid) Leg Curl Details B Resistance 2>3.5 plates Reps/Time 2x10 Leg Ext Details B Resistance 2 plates Reps/Time 2x10 Shuttle Recovery unilateral squat Resistance 37# (1navy) Reps/Time 2x15 bilateral squat Details cue x1 knee alignment /c mid ft Resistance 62# (2 [employer]) Reps/Time x15 Therapeutic Exercises Supine Exercises single leg bridge Supine Exercise Name reviewed HEP Side bilateral Reps/Minutes x10 Comments good form glut fac /c self correction foot closer -HS recruitment Sidelying Exercises adduction Sidelying Exercise Name added to HEP Side bilateral Resistance L>R distal weakness Reps/Minutes 2x10 Comments Cued TKE and DF improved mid add effort/not distal att ant tib pain. hip abduction Sidelying Exercise Name with hip IR for glute medius; reviewed HEP Side left Resistance AROM with brief hold Equipment Used stacked on side, kickstand top UE on table Reps/Minutes 2x15 Comments good form Sitting Exercises LAQ Sitting Exercise Name added to HEP Side left Resistance lvl 2 teal band (home) Equipment Used band tied behind table Reps/Minutes 2x10 Comments cued TKE; demos slight lateral patellar tracking, no pain Standing Exercises lat step down Standing Exercise Name trialed 12/14- hold Side left Equipment Used 6 step Reps/Minutes 2 Comments stopped due to med knee pain, manual block ant knee- no improvment glut med at wall Standing Exercise Name trialed 12/14- hold Side left Comments hip elevation at wall- caused med knee pain wall squat Standing Exercise Name 60 deg knee flex Side bilateral Resistance B, L Equipment Used wall Reps/Minutes 30 each Comments mid quad tiring only, good knee alignment PT-OP-T Assessment and Plan Start: 12/01/23 17:56 Freq: Status: Active Protocol: Document 12/15/23 07:33 SP (Rec: 12/15/23 08:19 SP [id number]) Physical Therapy Assessment Goals Five Impairment AROM Impairment L knee extension -3 deg Global Safety Officer Goal (LTG) Pt will achieve L terminal knee extension AROM of 0 deg in order to demonstrate improved L knee stability during gait, stairs, and ADLs. LTG Duration 8 weeks Four Impairment activity Impairment pain with ambulation, hiking for 20 minutes Jail Goal (LTG) Pt will report that she is able to ambulate or hike at least 30 minutes with L knee pain <4/10 in order to demonstrate improved activity tolerance LTG Duration 8 weeks Three Impairment balance Impairment SLS 8 sec LLE Short Term Goal (STG) Pt will improve L single leg stance to at least 15 seconds in order to demonstrate improved L knee stability during gait and hiking STG Duration 4 weeks Jail Goal (LTG) Pt will improve L single leg stance to at least 20 seconds in order to demonstrate improved L knee stability during gait and hiking LTG Duration 8 weeks Two Impairment function Impairment 10 squats Short Term Goal (STG) Pt will be able to perform at least 10 bilateral squats with pain <3/10 and without compensation in order to demonstrate increased BLE strength and stability for gait, ADLs STG Duration 4 weeks Global Safety Officer Goal (LTG) Pt will be able to perform at least 10 bilateral squats without pain and without compensation in order to demonstrate increased BLE strength and stability for gait, ADLs LTG Duration 8 weeks One Impairment sitting Impairment pain with sitting 15-20 minutes Global Safety Officer Goal (LTG) Pt will report that she is able to sit for at least 1 hour without L knee pain due to ergonomic changes at her desk, more frequent breaks in order to demonstrate improved QOL and activity tolerance. LTG Duration 8 weeks Assessment Summary Assessment Pt good mid quad tiring throughout ther ex. Medial Lknee pain during trial glut med and lat step down, hold due to pain even after cued alignment. Good effort and tiring mid adductor post cue for TKE and DF, eliminated distal pain recruitment, added toHEP. Pt reported good tiring end tx, pnfree. Physical Therapy Plan Frequency and Duration Frequency of Treatment 2x/Week Duration of treatment (weeks) 8 Plan of Care Start Date 12/02/23 Plan of Care End Date 01/28/24 Therapeutic Interventions Therapeutic Interventions Aquatic Therapy,Balance Training,Coordination Training ,Gait Training,Home Exercise Program,Joint Mobilizations, Manual Therapy,Neuromuscular Re-education,Orthotic/ Prosthetic Management,Patient/ Caregiver Education,Self-Care/ Home Management,Sensory Integration,Soft Tissue Mobilization,Taping, Therapeutic Activities, Therapeutic Exercises Modalities Cold Pack/Ice Massage,Electric Stimulation,Hot Packs, Ultrasound,Vasopneumatic Devices Next Visit Focus/Plan Next Note Type Treatment Note Next Visit Plan Assess adduction to HEP. NExt tx Progress LAQ, retrain squat at limited depth, hip abduction (trial side steps), glute strengthening, leg press ? at low resistance education activity modification, gait training prn Manual: patellar, STM, knee mob prn
--- NOTE | 2023-12-17 08:36 | PT.OTN ---
Current Diagnoses Unilateral primary osteoarthritis, left knee (12/17/23) Weakness (12/17/23) Physical Therapy Treatment Note PT-OP-A Visit Information Start: 12/01/23 17:56 Freq: Status: Active Protocol: Document 12/17/23 07:29 NM (Rec: 12/17/23 08:17 NM [id number]) Out-Patient Physical Therapy Visit Information Visit Information Visit Type Treatment Note Visit Note 03/02 visits Visit Start Time 07:30 Visit Stop Time 08:15 Visit Number 5 Evaluation Information Evaluation Date 12/02/23 Precautions Precautions No twisting, limit squat depth and unstable surfaces PT-OP-B Current Condition Start: 12/01/23 17:56 Freq: Status: Active Protocol: Document 12/02/23 08:15 NM (Rec: 12/02/23 11:54 NM [id number]) Current Condition History of Current Condition Onset Date 6 months ago Current Complaints stiffness, pain History of Current Condition Pt presents with L medial knee pain. Original ZOILA believed to have occured about 2 years ago, she twisted her knee getting off of a bar stool. About 6 months ago, she began to have increased stiffness in her knee with sitting, unable to walk without pain. Pain occurs with sitting 15-20 minutes, then initial 15-20 min of walking afterward. Stiffness and pain improve with movement overall. Imaging reveals degeneration. Pain occasionally occurs down the posterior knee. She is an avid hiker about 3-4x/wk, but is currently unable to hike due to pain. Her occupation requires sitting for long periods of time. Most knee pain when sitting at at desk ( max 4 hrs before get up);pain is also worse with unstable surfaces, with knee hyperextension. Reports no feelings of instability, just stiff and painful Prior Treatments and Tests October 2022 Radiograph: degeneration Prior Functional Status Baseline Function- ADL's Independent Baseline Function- Mobility Independent Baseline Function- Recreation/Hobbies hike 3-4x/wk Current Functional Impairments (Reported) Functional Limitations- Mobility/Gait sit 15-20 min then knee is painful, initial 20 min of walking Functional Limitations- Work/School Pain when sitting at her desk at work PT-OP-C Subjective Start: 12/01/23 17:56 Freq: Status: Active Protocol: Document 12/17/23 07:29 NM (Rec: 12/17/23 08:17 NM [id number]) OP-PT Subjective Patient Comments Patient Comments Pt reports that her knee is pretty sore after going on a hike yesterday. She was also sore after last treatment due to addition of weights, but reports that she felt good after. PT-OP-D Balance Start: 12/01/23 17:56 Freq: Status: Active Protocol: Document 12/02/23 08:15 NM (Rec: 12/02/23 11:54 NM [id number]) Balance Tests Single Limb Standing Single Limb- Right 10 seconds Single Limb- Left 5 seconds; not painful but unstable Tandem Tandem Standing 8 seconds PT-OP-E Functional Tests Start: 12/01/23 17:56 Freq: Status: Active Protocol: Document 12/02/23 08:15 NM (Rec: 12/02/23 11:54 NM [id number]) Functional Tests Squat Test Score 10 squats Comments pain with depth, clicking, B valgus, hip rotation PT-OP-F Manual Assessment Start: 12/01/23 17:56 Freq: Status: Active Protocol: Document 12/02/23 08:15 NM (Rec: 12/02/23 11:54 NM [id number]) Manual Assessments Soft Tissue Assessment Soft Tissue Mobility Assessment Limited B hamstring length. Tenderness of medial knee muscles near joint line Joint Mobility Assessment Joint Mobility Assessment Increased clicking/popping with knee rotation, squatting. PT-OP-G Mobility & Gait Start: 12/01/23 17:56 Freq: Status: Active Protocol: Document 12/02/23 08:15 NM (Rec: 12/02/23 11:54 NM [id number]) OP Gait Assessment Gait Gait Assistance Required: Standby Assistance Distance (Feet) 200 Assistive Devices Assistive Device None Gait Deviations General Gait Pattern Antalgic Factors Limiting Gait Function Factors Limiting Gait Function Decreased Activity Tolerance, Decreased Strength,Pain Comments Gait Comments Decreased stance time LLE, no TKE. Antalgic Stair Climbing Evaluation Evaluation Level of Assist On Stairs Independent Devices Stair Climbing Assistive Devices None Technique/Endurance Stair Climbing Direction Ascend and Descend Stair Climbing Technique Step Over Step Number of Steps Climbed 4 Stair Climbing Set # Repetitions (reps) 1 Comments Stair Climbing Comments Pain with descent, valgus at knees PT-OP-H Neuro Start: 12/01/23 17:56 Freq: Status: Active Protocol: Document 12/02/23 08:15 NM (Rec: 12/02/23 11:54 NM [id number]) Sensation Evaluation Gross Sensation Gross Sensation WNL Comments Summary Comments BLE intact to light touch sensation PT-OP-J Posture/Palpation/Skin Start: 12/01/23 17:56 Freq: Status: Active Protocol: Document 12/02/23 08:15 NM (Rec: 12/02/23 11:54 NM [id number]) Posture Evaluation Position Standing Head/C-Spine Posture Forward Head Pelvis Posture Anteriorly Tilted Weight Distribution Decreased Wt.Bear on (L) Hip Posture (L) Externally Rotated,(R) Externally Rotated Knee Posture (L) Genu Valgus,(R) Genu Valgus Patellar Posture (L) Superior,(R) Superior Foot Arch (L) Medium Arch,(R) Medium Arch Toe Posture (L) Flexed Toes,(R) Flexed Toes Palpation Assessment Location L knee Palpation Location medial knee Palpation Findings Soft Tissue Tightness, Tenderness Palpation Details Medial joint line tenderness PT-OP-K Range of Motion Start: 12/01/23 17:56 Freq: Status: Active Protocol: Document 12/02/23 08:15 NM (Rec: 12/02/23 11:54 NM [id number]) Hip Goniometric Range of Motion Hip Right Flexion w/Knee Flexed 110 Straight Leg Raise 145 Internal Rotation 20 External Rotation 25 Left Flexion w/Knee Flexed 110 Straight Leg Raise 160 Internal Rotation 35 External Rotation 30 Knee Goniometric Range of Motion Knee Right Flexion Active (degrees) 140 Extension Active (degrees) 0 Left Flexion Active (degrees) 135 Extension Active (degrees) 3 Extension Passive (degrees) 0 Knee ROM Limitations Knee ROM Limitations Pain Comments Pain with hyperextension, end range flexion PT-OP-L Special Tests Start: 12/01/23 17:56 Freq: Status: Active Protocol: Document 12/02/23 08:15 NM (Rec: 12/02/23 11:54 NM [id number]) Special Tests Knee Special Tests Patellar Grind Test Test Results + Valgus Test Results - Comments 0, 30 deg Varus Test Results - Comments 0, 30 deg Posterior Draw Test Results - Posterior Sag Test Results - Nisa's Test Results - Anterior Draw Test Results - Apley's Compression Test Results + Kaela Test Test Results + PT-OP-M Strength Start: 12/01/23 17:56 Freq: Status: Active Protocol: Document 12/02/23 08:15 NM (Rec: 12/02/23 11:54 NM [id number]) Hip Strength Hip Manual Muscle Testing Right Flexion (L2) 4 Good Extension (S1) 4 Good Abduction 4 Good Adduction 4 Good External Rotation 4 Good Internal Rotation 4 Good Left Flexion (L2) 4 Good Extension (S1) 4 Good Abduction 4 Good Adduction 4 Good External Rotation 4 Good Internal Rotation 4 Good Knee Strength Knee Manual Muscle Testing Right Flexion (S2) 4+ Good+ Extension (L3) 4+ Good+ Left Flexion (S2) 4 Good Extension (L3) 4 Good Comments no pain Ankle/Foot Strength Ankle and Foot Manual Muscle Testing Right Dorsiflexion (L4) 4 Good Plantarflexion (S1) 4 Good Inversion 4 Good Eversion (S1) 4 Good Left Dorsiflexion (L4) 4 Good Plantarflexion (S1) 4 Good Inversion 4 Good Eversion (S1) 4 Good PT-OP-Q Treatments Start: 12/01/23 17:56 Freq: Status: Active Protocol: Document 12/17/23 07:29 NM (Rec: 12/17/23 08:17 NM [id number]) Cardio Equipment Bicycle (Upright) Duration (Minutes) 4 Resistance 0 Seat Position 7 Other warm up; reports no L knee pain Gym Equipment Cable Column (Body Solid) Leg Curl Details B Resistance lvl 5 Reps/Time 2x12 Leg Ext Details B Resistance lvl 3 Reps/Time 2x12 Shuttle Recovery unilateral squat Details LLE; cued no knee valgus w increased knee flex, improve w reps Resistance 37# (1navy) Reps/Time 2x15 bilateral squat Details cue x1 knee alignment /c mid ft, TKE w/o lock knee Resistance 62# (2 [employer]) Reps/Time 2x10 Therapeutic Exercises Sitting Exercises LAQ Sitting Exercise Name issued green band lvl 3 for HEP Standing Exercises squat Standing Exercise Name initiated in PT, added to HEP: body weight, chair tap, knee flex <80 deg Side bilateral Resistance lvl 2 tb around thighs Equipment Used mirror for vc, PT facil at hips to minimize rot w depth Reps/Minutes 3x8 Comments cued for form, more glute activation, equal WB, shifts L w slight hip rot side steps Standing Exercise Name initiated in PT, added to HEP Side bilateral Resistance lvl 3 tb around toes Reps/Minutes 3x15 ft ea direction Comments cued neutral toes, foot clearance, squat stance; fatiguing hamstring stretch Standing Exercise Name bottoms up Side bilateral Equipment Used 15 plinth for hands Reps/Minutes 1x30 Comments reports good hamstring stretch , no pain Manual Therapy Treatment Soft Tissue Mobilization L thigh Body Location patellar tendon Mobilization Type Cross-Friction Intensity/Depth Superficial Body Position Supine Comments For pain reduction. Slightly thickened compared to LLE, no pain with/after cross friction Joint Mobilizations L knee Joint patellar mobilizations, tibfemoral Direction S-I, M-L; AP/PA Grade II Body Position Supine Reps/Duration 1x10 ea Comments 1. supine: decreased patellar mobility med/inf; P-A and A-P to improve knee flexion AROM Now at 0 deg TKE post mobilizatin 2. sitting: knee ext with P-A and ER for screwhome to TKE Neuro Re-Education Treatment Balance Activities SLS Surface stable Reps/Duration 2x15 ea leg Comments Hands hovering near wall for support prn, cued soft knee to allow quad stabilization at knee No pain, demos good stability but fatigues quickly for 2nd set. Reports no instability Self-Care/Home Management Treatment Education Patient Education Home Exercise Program,Joint Protection,Pain Management Caregiver Education R knee 39 cm, L knee 41 cm swelling (circumference at patella) Other Education 5 minutes: Educated on not planning multiple activities that aggravate knee during week, allowing rest days between activities due to swelling, modalities (e.g. ice ) during day prn for pain relief dayana with swelling. HEP: side steps, squat, SLS; d/c wall squats PT-OP-T Assessment and Plan Start: 12/01/23 17:56 Freq: Status: Active Protocol: Document 12/17/23 07:29 NM (Rec: 12/17/23 08:17 NM [id number]) Physical Therapy Assessment Goals Five Impairment AROM Impairment L knee extension -3 deg Mcc Goal (LTG) Pt will achieve L terminal knee extension AROM of 0 deg in order to demonstrate improved L knee stability during gait, stairs, and ADLs. 12/17/23: 0 deg TKE post mobilization LTG Duration 8 weeks Four Impairment activity Impairment pain with ambulation, hiking for 20 minutes Mcc Goal (LTG) Pt will report that she is able to ambulate or hike at least 30 minutes with L knee pain <4/10 in order to demonstrate improved activity tolerance LTG Duration 8 weeks Three Impairment balance Impairment SLS 8 sec LLE Short Term Goal (STG) Pt will improve L single leg stance to at least 15 seconds in order to demonstrate improved L knee stability during gait and hiking 12/17/23: initiated in PT 15 sec SLS w prn wall support STG Duration 4 weeks [employer] Goal (LTG) Pt will improve L single leg stance to at least 20 seconds in order to demonstrate improved L knee stability during gait and hiking LTG Duration 8 weeks Two Impairment function Impairment 10 squats Short Term Goal (STG) Pt will be able to perform at least 10 bilateral squats with pain <3/10 and without compensation in order to demonstrate increased BLE strength and stability for gait, ADLs 12/17/23: initiated chair squat w band, no pain with depth 80 deg body weight squat STG Duration 4 weeks Mcc Goal (LTG) Pt will be able to perform at least 10 bilateral squats without pain and without compensation in order to demonstrate increased BLE strength and stability for gait, ADLs LTG Duration 8 weeks One Impairment sitting Impairment pain with sitting 15-20 minutes Mcc Goal (LTG) Pt will report that she is able to sit for at least 1 hour without L knee pain due to ergonomic changes at her desk, more frequent breaks in order to demonstrate improved QOL and activity tolerance. 12/17/23: reports less knee pain with sitting, more frequent breaks/rests and improvement with exercise LTG Duration 8 weeks Assessment Summary Assessment Pt presents with increased swelling in L knee s/p 4 mi hike yesterday; pt planning on biking 15 mi today, but unable to ambulate with TKE upon presentation to clinic. PT educated pt on taking rest days, ice to decrease swelling , and minimize aggravating activities to decrease inflammation and pain in L knee. Pt verbalizes understanding. Session emphasis on strengthening glutes, hip abductors, and quad. Initiated side steps for lateral hip strengthening in place of lateral step downs. Cued for foot clearance. Progressed resistance or number of reps on leg press, leg curls, and leg extension machines. Initiated body weight squats with mirror and band for cues. Verbally cued for more glute activation, PT facilitating at hips initially to limit hip rotation as squat depth increased; limited to >80 deg to limit strain on L knee. Added single leg stance to initiate proprioception training and stability. Pt without pain during session. Manual treatment to restore knee extension mechanics, decrease patellar tendon tenderness. Pt would benefit from skilled PT for progressive L knee/hip strengthening, body mechanics training in order to limit pain symptoms and improve activity tolerance. Physical Therapy Plan Frequency and Duration Frequency of Treatment 2x/Week Duration of treatment (weeks) 8 Plan of Care Start Date 12/02/23 Plan of Care End Date 01/28/24 Therapeutic Interventions Therapeutic Interventions Aquatic Therapy,Balance Training,Coordination Training ,Gait Training,Home Exercise Program,Joint Mobilizations, Manual Therapy,Neuromuscular Re-education,Orthotic/ Prosthetic Management,Patient/ Caregiver Education,Self-Care/ Home Management,Sensory Integration,Soft Tissue Mobilization,Taping, Therapeutic Activities, Therapeutic Exercises Modalities Cold Pack/Ice Massage,Electric Stimulation,Hot Packs, Ultrasound,Vasopneumatic Devices Next Visit Focus/Plan Next Note Type Treatment Note Next Visit Plan Next session: review side steps, trial wall haydee again glute med, trial eccentric step up/down 4; progress squat Progress LAQ, retrain squat at limited depth, hip abduction (trial side steps), glute strengthening, leg press? at low resistance education activity modification, gait training prn Manual: patellar, STM, knee mob prn
--- NOTE | 2023-12-21 09:18 | PT.OTN ---
Current Diagnoses Unilateral primary osteoarthritis, left knee (12/21/23) Weakness (12/21/23) Physical Therapy Treatment Note PT-OP-A Visit Information Start: 12/01/23 17:56 Freq: Status: Active Protocol: Document 12/21/23 07:58 AB (Rec: 12/21/23 09:17 AB [id number]) Out-Patient Physical Therapy Visit Information Visit Information Visit Type Treatment Note Visit Note Access Code:[email or web address] 04/02 visits Visit Start Time 08:17 Visit Stop Time 09:00 Visit Number 6 Number of CABLE INSTALLER Visits 1 Evaluation Information Evaluation Date 12/02/23 Precautions Precautions No twisting, limit squat depth and unstable surfaces PT-OP-B Current Condition Start: 12/01/23 17:56 Freq: Status: Active Protocol: Document 12/02/23 08:15 NM (Rec: 12/02/23 11:54 NM [id number]) Current Condition History of Current Condition Onset Date 6 months ago Current Complaints stiffness, pain History of Current Condition Pt presents with L medial knee pain. Original ZOILA believed to have occured about 2 years ago, she twisted her knee getting off of a bar stool. About 6 months ago, she began to have increased stiffness in her knee with sitting, unable to walk without pain. Pain occurs with sitting 15-20 minutes, then initial 15-20 min of walking afterward. Stiffness and pain improve with movement overall. Imaging reveals degeneration. Pain occasionally occurs down the posterior knee. She is an avid hiker about 3-4x/wk, but is currently unable to hike due to pain. Her occupation requires sitting for long periods of time. Most knee pain when sitting at at desk ( max 4 hrs before get up);pain is also worse with unstable surfaces, with knee hyperextension. Reports no feelings of instability, just stiff and painful Prior Treatments and Tests October 2022 Radiograph: degeneration Prior Functional Status Baseline Function- ADL's Independent Baseline Function- Mobility Independent Baseline Function- Recreation/Hobbies hike 3-4x/wk Current Functional Impairments (Reported) Functional Limitations- Mobility/Gait sit 15-20 min then knee is painful, initial 20 min of walking Functional Limitations- Work/School Pain when sitting at her desk at work PT-OP-C Subjective Start: 12/01/23 17:56 Freq: Status: Active Protocol: Document 12/21/23 07:58 AB (Rec: 12/21/23 09:17 AB [id number]) OP-PT Subjective Patient Comments Patient Comments Patient reports she is better. Patient reports she bought an E assist bike which has been a game changer. PT-OP-D Balance Start: 12/01/23 17:56 Freq: Status: Active Protocol: Document 12/02/23 08:15 NM (Rec: 12/02/23 11:54 NM [id number]) Balance Tests Single Limb Standing Single Limb- Right 10 seconds Single Limb- Left 5 seconds; not painful but unstable Tandem Tandem Standing 8 seconds PT-OP-E Functional Tests Start: 12/01/23 17:56 Freq: Status: Active Protocol: Document 12/02/23 08:15 NM (Rec: 12/02/23 11:54 NM [id number]) Functional Tests Squat Test Score 10 squats Comments pain with depth, clicking, B valgus, hip rotation PT-OP-F Manual Assessment Start: 12/01/23 17:56 Freq: Status: Active Protocol: Document 12/02/23 08:15 NM (Rec: 12/02/23 11:54 NM [id number]) Manual Assessments Soft Tissue Assessment Soft Tissue Mobility Assessment Limited B hamstring length. Tenderness of medial knee muscles near joint line Joint Mobility Assessment Joint Mobility Assessment Increased clicking/popping with knee rotation, squatting. PT-OP-G Mobility & Gait Start: 12/01/23 17:56 Freq: Status: Active Protocol: Document 12/02/23 08:15 NM (Rec: 12/02/23 11:54 NM [id number]) OP Gait Assessment Gait Gait Assistance Required: Standby Assistance Distance (Feet) 200 Assistive Devices Assistive Device None Gait Deviations General Gait Pattern Antalgic Factors Limiting Gait Function Factors Limiting Gait Function Decreased Activity Tolerance, Decreased Strength,Pain Comments Gait Comments Decreased stance time LLE, no TKE. Antalgic Stair Climbing Evaluation Evaluation Level of Assist On Stairs Independent Devices Stair Climbing Assistive Devices None Technique/Endurance Stair Climbing Direction Ascend and Descend Stair Climbing Technique Step Over Step Number of Steps Climbed 4 Stair Climbing Set # Repetitions (reps) 1 Comments Stair Climbing Comments Pain with descent, valgus at knees PT-OP-H Neuro Start: 12/01/23 17:56 Freq: Status: Active Protocol: Document 12/02/23 08:15 NM (Rec: 12/02/23 11:54 NM [id number]) Sensation Evaluation Gross Sensation Gross Sensation WNL Comments Summary Comments BLE intact to light touch sensation PT-OP-J Posture/Palpation/Skin Start: 12/01/23 17:56 Freq: Status: Active Protocol: Document 12/02/23 08:15 NM (Rec: 12/02/23 11:54 NM [id number]) Posture Evaluation Position Standing Head/C-Spine Posture Forward Head Pelvis Posture Anteriorly Tilted Weight Distribution Decreased Wt.Bear on (L) Hip Posture (L) Externally Rotated,(R) Externally Rotated Knee Posture (L) Genu Valgus,(R) Genu Valgus Patellar Posture (L) Superior,(R) Superior Foot Arch (L) Medium Arch,(R) Medium Arch Toe Posture (L) Flexed Toes,(R) Flexed Toes Palpation Assessment Location L knee Palpation Location medial knee Palpation Findings Soft Tissue Tightness, Tenderness Palpation Details Medial joint line tenderness PT-OP-K Range of Motion Start: 12/01/23 17:56 Freq: Status: Active Protocol: Document 12/02/23 08:15 NM (Rec: 12/02/23 11:54 NM [id number]) Hip Goniometric Range of Motion Hip Right Flexion w/Knee Flexed 110 Straight Leg Raise 145 Internal Rotation 20 External Rotation 25 Left Flexion w/Knee Flexed 110 Straight Leg Raise 160 Internal Rotation 35 External Rotation 30 Knee Goniometric Range of Motion Knee Right Flexion Active (degrees) 140 Extension Active (degrees) 0 Left Flexion Active (degrees) 135 Extension Active (degrees) 3 Extension Passive (degrees) 0 Knee ROM Limitations Knee ROM Limitations Pain Comments Pain with hyperextension, end range flexion PT-OP-L Special Tests Start: 12/01/23 17:56 Freq: Status: Active Protocol: Document 12/02/23 08:15 NM (Rec: 12/02/23 11:54 NM [id number]) Special Tests Knee Special Tests Patellar Grind Test Test Results + Valgus Test Results - Comments 0, 30 deg Varus Test Results - Comments 0, 30 deg Posterior Draw Test Results - Posterior Sag Test Results - Nisa's Test Results - Anterior Draw Test Results - Apley's Compression Test Results + Kaela Test Test Results + PT-OP-M Strength Start: 12/01/23 17:56 Freq: Status: Active Protocol: Document 12/02/23 08:15 NM (Rec: 12/02/23 11:54 NM [id number]) Hip Strength Hip Manual Muscle Testing Right Flexion (L2) 4 Good Extension (S1) 4 Good Abduction 4 Good Adduction 4 Good External Rotation 4 Good Internal Rotation 4 Good Left Flexion (L2) 4 Good Extension (S1) 4 Good Abduction 4 Good Adduction 4 Good External Rotation 4 Good Internal Rotation 4 Good Knee Strength Knee Manual Muscle Testing Right Flexion (S2) 4+ Good+ Extension (L3) 4+ Good+ Left Flexion (S2) 4 Good Extension (L3) 4 Good Comments no pain Ankle/Foot Strength Ankle and Foot Manual Muscle Testing Right Dorsiflexion (L4) 4 Good Plantarflexion (S1) 4 Good Inversion 4 Good Eversion (S1) 4 Good Left Dorsiflexion (L4) 4 Good Plantarflexion (S1) 4 Good Inversion 4 Good Eversion (S1) 4 Good PT-OP-Q Treatments Start: 12/01/23 17:56 Freq: Status: Active Protocol: Document 12/21/23 07:58 AB (Rec: 12/21/23 09:17 AB [id number]) Therapeutic Exercises Supine Exercises hamstring stretch Supine Exercise Name from hooklying Sitting Exercises hamstring stretch Sitting Exercise Name with LE on mat seated then with LE on floor hip hinge Side left Reps/Minutes one minute times one each stretch Standing Exercises bottoms up Standing Exercise Name hands on floor Reps/Minutes X10 Comments Verbal and visual cues calf stretch on step Reps/Minutes 2X one min squat Side bilateral Resistance lvl 2 tb around thighs Reps/Minutes X10 X3 Comments Patient ed self tactile cues for hip hinge wall squat Standing Exercise Name 60 deg knee flex Side bilateral Equipment Used wall Reps/Minutes X3 Manual Therapy Treatment Soft Tissue Mobilization left hamstring Mobilization Type Cross-Friction,Rolling Intensity/Depth Moderate Body Position Prone Comments at rest and also with knee flexion and prone quad set X 15 Joint Mobilizations left patella Joint inf, sup, CW and CCW Grade III Body Position Supine Reps/Duration X8 Comments monitored for pain Neuro Re-Education Treatment Other Activities glute med activation Details seated hip abduction with band Reps/Duration one min hold X 1 level 2 band Comments verbal cues Self-Care/Home Management Treatment Activities Self-Care/Home Management Activities hamstring stretch, calf stretches, bottoms up added to HEP PT-OP-T Assessment and Plan Start: 12/01/23 17:56 Freq: Status: Active Protocol: Document 12/21/23 07:58 AB (Rec: 12/21/23 09:17 AB [id number]) Physical Therapy Assessment Goals Five Impairment AROM Impairment L knee extension -3 deg Body Bumper Goal (LTG) Pt will achieve L terminal knee extension AROM of 0 deg in order to demonstrate improved L knee stability during gait, stairs, and ADLs. 12/17/23: 0 deg TKE post mobilization LTG Duration 8 weeks Four Impairment activity Impairment pain with ambulation, hiking for 20 minutes Residential Goal (LTG) Pt will report that she is able to ambulate or hike at least 30 minutes with L knee pain <4/10 in order to demonstrate improved activity tolerance LTG Duration 8 weeks Three Impairment balance Impairment SLS 8 sec LLE Short Term Goal (STG) Pt will improve L single leg stance to at least 15 seconds in order to demonstrate improved L knee stability during gait and hiking 12/17/23: initiated in PT 15 sec SLS w prn wall support STG Duration 4 weeks Body Bumper Goal (LTG) Pt will improve L single leg stance to at least 20 seconds in order to demonstrate improved L knee stability during gait and hiking LTG Duration 8 weeks Two Impairment function Impairment 10 squats Short Term Goal (STG) Pt will be able to perform at least 10 bilateral squats with pain <3/10 and without compensation in order to demonstrate increased BLE strength and stability for gait, ADLs 12/17/23: initiated chair squat w band, no pain with depth 80 deg body weight squat STG Duration 4 weeks Residential Goal (LTG) Pt will be able to perform at least 10 bilateral squats without pain and without compensation in order to demonstrate increased BLE strength and stability for gait, ADLs LTG Duration 8 weeks One Impairment sitting Impairment pain with sitting 15-20 minutes Body Bumper Goal (LTG) Pt will report that she is able to sit for at least 1 hour without L knee pain due to ergonomic changes at her desk, more frequent breaks in order to demonstrate improved QOL and activity tolerance. 12/17/23: reports less knee pain with sitting, more frequent breaks/rests and improvement with exercise LTG Duration 8 weeks Assessment Summary Assessment Patient reports pain left knee with sit to stand is the same end of session. Physical Therapy Plan Frequency and Duration Frequency of Treatment 2x/Week Duration of treatment (weeks) 8 Plan of Care Start Date 12/02/23 Plan of Care End Date 01/28/24 Next Visit Focus/Plan Next Note Type Treatment Note Next Visit Plan Next session: review side steps, trial wall haydee again glute med, trial eccentric step up/down 4; progress squat Progress LAQ, retrain squat at limited depth, hip abduction (review side steps), glute strengthening, leg press? at low resistance education activity modification, gait training prn, Glute med activation, band progression as able Manual: patellar, STM, knee mob prn, Taping
--- NOTE | 2023-12-21 09:19 | PT.OTN ---
Current Diagnoses Unilateral primary osteoarthritis, left knee (12/21/23) Weakness (12/21/23) Physical Therapy Treatment Note PT-OP-A Visit Information Start: 12/01/23 17:56 Freq: Status: Active Protocol: Document 12/21/23 07:58 AB (Rec: 12/21/23 09:17 AB [id number]) Out-Patient Physical Therapy Visit Information Visit Information Visit Type Treatment Note Visit Note Access Code:[email or web address] 04/02 visits Visit Start Time 08:17 Visit Stop Time 09:00 Visit Number 6 Number of MATERIALS MANAGEMENT MANAGER Visits 1 Evaluation Information Evaluation Date 12/02/23 Precautions Precautions No twisting, limit squat depth and unstable surfaces PT-OP-B Current Condition Start: 12/01/23 17:56 Freq: Status: Active Protocol: Document 12/02/23 08:15 NM (Rec: 12/02/23 11:54 NM [id number]) Current Condition History of Current Condition Onset Date 6 months ago Current Complaints stiffness, pain History of Current Condition Pt presents with L medial knee pain. Original ZOILA believed to have occured about 2 years ago, she twisted her knee getting off of a bar stool. About 6 months ago, she began to have increased stiffness in her knee with sitting, unable to walk without pain. Pain occurs with sitting 15-20 minutes, then initial 15-20 min of walking afterward. Stiffness and pain improve with movement overall. Imaging reveals degeneration. Pain occasionally occurs down the posterior knee. She is an avid hiker about 3-4x/wk, but is currently unable to hike due to pain. Her occupation requires sitting for long periods of time. Most knee pain when sitting at at desk ( max 4 hrs before get up);pain is also worse with unstable surfaces, with knee hyperextension. Reports no feelings of instability, just stiff and painful Prior Treatments and Tests October 2022 Radiograph: degeneration Prior Functional Status Baseline Function- ADL's Independent Baseline Function- Mobility Independent Baseline Function- Recreation/Hobbies hike 3-4x/wk Current Functional Impairments (Reported) Functional Limitations- Mobility/Gait sit 15-20 min then knee is painful, initial 20 min of walking Functional Limitations- Work/School Pain when sitting at her desk at work PT-OP-C Subjective Start: 12/01/23 17:56 Freq: Status: Active Protocol: Document 12/21/23 07:58 AB (Rec: 12/21/23 09:17 AB [id number]) OP-PT Subjective Patient Comments Patient Comments Patient reports she is better. Patient reports she bought an E assist bike which has been a game changer. PT-OP-D Balance Start: 12/01/23 17:56 Freq: Status: Active Protocol: Document 12/02/23 08:15 NM (Rec: 12/02/23 11:54 NM [id number]) Balance Tests Single Limb Standing Single Limb- Right 10 seconds Single Limb- Left 5 seconds; not painful but unstable Tandem Tandem Standing 8 seconds PT-OP-E Functional Tests Start: 12/01/23 17:56 Freq: Status: Active Protocol: Document 12/02/23 08:15 NM (Rec: 12/02/23 11:54 NM [id number]) Functional Tests Squat Test Score 10 squats Comments pain with depth, clicking, B valgus, hip rotation PT-OP-F Manual Assessment Start: 12/01/23 17:56 Freq: Status: Active Protocol: Document 12/02/23 08:15 NM (Rec: 12/02/23 11:54 NM [id number]) Manual Assessments Soft Tissue Assessment Soft Tissue Mobility Assessment Limited B hamstring length. Tenderness of medial knee muscles near joint line Joint Mobility Assessment Joint Mobility Assessment Increased clicking/popping with knee rotation, squatting. PT-OP-G Mobility & Gait Start: 12/01/23 17:56 Freq: Status: Active Protocol: Document 12/02/23 08:15 NM (Rec: 12/02/23 11:54 NM [id number]) OP Gait Assessment Gait Gait Assistance Required: Standby Assistance Distance (Feet) 200 Assistive Devices Assistive Device None Gait Deviations General Gait Pattern Antalgic Factors Limiting Gait Function Factors Limiting Gait Function Decreased Activity Tolerance, Decreased Strength,Pain Comments Gait Comments Decreased stance time LLE, no TKE. Antalgic Stair Climbing Evaluation Evaluation Level of Assist On Stairs Independent Devices Stair Climbing Assistive Devices None Technique/Endurance Stair Climbing Direction Ascend and Descend Stair Climbing Technique Step Over Step Number of Steps Climbed 4 Stair Climbing Set # Repetitions (reps) 1 Comments Stair Climbing Comments Pain with descent, valgus at knees PT-OP-H Neuro Start: 12/01/23 17:56 Freq: Status: Active Protocol: Document 12/02/23 08:15 NM (Rec: 12/02/23 11:54 NM [id number]) Sensation Evaluation Gross Sensation Gross Sensation WNL Comments Summary Comments BLE intact to light touch sensation PT-OP-J Posture/Palpation/Skin Start: 12/01/23 17:56 Freq: Status: Active Protocol: Document 12/02/23 08:15 NM (Rec: 12/02/23 11:54 NM [id number]) Posture Evaluation Position Standing Head/C-Spine Posture Forward Head Pelvis Posture Anteriorly Tilted Weight Distribution Decreased Wt.Bear on (L) Hip Posture (L) Externally Rotated,(R) Externally Rotated Knee Posture (L) Genu Valgus,(R) Genu Valgus Patellar Posture (L) Superior,(R) Superior Foot Arch (L) Medium Arch,(R) Medium Arch Toe Posture (L) Flexed Toes,(R) Flexed Toes Palpation Assessment Location L knee Palpation Location medial knee Palpation Findings Soft Tissue Tightness, Tenderness Palpation Details Medial joint line tenderness PT-OP-K Range of Motion Start: 12/01/23 17:56 Freq: Status: Active Protocol: Document 12/02/23 08:15 NM (Rec: 12/02/23 11:54 NM [id number]) Hip Goniometric Range of Motion Hip Right Flexion w/Knee Flexed 110 Straight Leg Raise 145 Internal Rotation 20 External Rotation 25 Left Flexion w/Knee Flexed 110 Straight Leg Raise 160 Internal Rotation 35 External Rotation 30 Knee Goniometric Range of Motion Knee Right Flexion Active (degrees) 140 Extension Active (degrees) 0 Left Flexion Active (degrees) 135 Extension Active (degrees) 3 Extension Passive (degrees) 0 Knee ROM Limitations Knee ROM Limitations Pain Comments Pain with hyperextension, end range flexion PT-OP-L Special Tests Start: 12/01/23 17:56 Freq: Status: Active Protocol: Document 12/02/23 08:15 NM (Rec: 12/02/23 11:54 NM [id number]) Special Tests Knee Special Tests Patellar Grind Test Test Results + Valgus Test Results - Comments 0, 30 deg Varus Test Results - Comments 0, 30 deg Posterior Draw Test Results - Posterior Sag Test Results - Nisa's Test Results - Anterior Draw Test Results - Apley's Compression Test Results + Kaela Test Test Results + PT-OP-M Strength Start: 12/01/23 17:56 Freq: Status: Active Protocol: Document 12/02/23 08:15 NM (Rec: 12/02/23 11:54 NM [id number]) Hip Strength Hip Manual Muscle Testing Right Flexion (L2) 4 Good Extension (S1) 4 Good Abduction 4 Good Adduction 4 Good External Rotation 4 Good Internal Rotation 4 Good Left Flexion (L2) 4 Good Extension (S1) 4 Good Abduction 4 Good Adduction 4 Good External Rotation 4 Good Internal Rotation 4 Good Knee Strength Knee Manual Muscle Testing Right Flexion (S2) 4+ Good+ Extension (L3) 4+ Good+ Left Flexion (S2) 4 Good Extension (L3) 4 Good Comments no pain Ankle/Foot Strength Ankle and Foot Manual Muscle Testing Right Dorsiflexion (L4) 4 Good Plantarflexion (S1) 4 Good Inversion 4 Good Eversion (S1) 4 Good Left Dorsiflexion (L4) 4 Good Plantarflexion (S1) 4 Good Inversion 4 Good Eversion (S1) 4 Good PT-OP-Q Treatments Start: 12/01/23 17:56 Freq: Status: Active Protocol: Document 12/21/23 07:58 AB (Rec: 12/21/23 09:17 AB [id number]) Therapeutic Exercises Supine Exercises hamstring stretch Supine Exercise Name from hooklying Sitting Exercises hamstring stretch Sitting Exercise Name with LE on mat seated then with LE on floor hip hinge Side left Reps/Minutes one minute times one each stretch Standing Exercises bottoms up Standing Exercise Name hands on floor Reps/Minutes X10 Comments Verbal and visual cues calf stretch on step Reps/Minutes 2X one min squat Side bilateral Resistance lvl 2 tb around thighs Reps/Minutes X10 X3 Comments Patient ed self tactile cues for hip hinge wall squat Standing Exercise Name 60 deg knee flex Side bilateral Equipment Used wall Reps/Minutes X3 Manual Therapy Treatment Soft Tissue Mobilization left hamstring Mobilization Type Cross-Friction,Rolling Intensity/Depth Moderate Body Position Prone Comments at rest and also with knee flexion and prone quad set X 15 Joint Mobilizations left patella Joint inf, sup, CW and CCW Grade III Body Position Supine Reps/Duration X8 Comments monitored for pain Neuro Re-Education Treatment Other Activities glute med activation Details seated hip abduction with band Reps/Duration one min hold X 1 level 2 band Comments verbal cues Self-Care/Home Management Treatment Activities Self-Care/Home Management Activities hamstring stretch, calf stretches, bottoms up added to HEP PT-OP-T Assessment and Plan Start: 12/01/23 17:56 Freq: Status: Active Protocol: Document 12/21/23 07:58 AB (Rec: 12/21/23 09:17 AB [id number]) Physical Therapy Assessment Goals Five Impairment AROM Impairment L knee extension -3 deg Boat Detailer Goal (LTG) Pt will achieve L terminal knee extension AROM of 0 deg in order to demonstrate improved L knee stability during gait, stairs, and ADLs. 12/17/23: 0 deg TKE post mobilization LTG Duration 8 weeks Four Impairment activity Impairment pain with ambulation, hiking for 20 minutes Nursing Home Goal (LTG) Pt will report that she is able to ambulate or hike at least 30 minutes with L knee pain <4/10 in order to demonstrate improved activity tolerance LTG Duration 8 weeks Three Impairment balance Impairment SLS 8 sec LLE Short Term Goal (STG) Pt will improve L single leg stance to at least 15 seconds in order to demonstrate improved L knee stability during gait and hiking 12/17/23: initiated in PT 15 sec SLS w prn wall support STG Duration 4 weeks Boat Detailer Goal (LTG) Pt will improve L single leg stance to at least 20 seconds in order to demonstrate improved L knee stability during gait and hiking LTG Duration 8 weeks Two Impairment function Impairment 10 squats Short Term Goal (STG) Pt will be able to perform at least 10 bilateral squats with pain <3/10 and without compensation in order to demonstrate increased BLE strength and stability for gait, ADLs 12/17/23: initiated chair squat w band, no pain with depth 80 deg body weight squat STG Duration 4 weeks Nursing Home Goal (LTG) Pt will be able to perform at least 10 bilateral squats without pain and without compensation in order to demonstrate increased BLE strength and stability for gait, ADLs LTG Duration 8 weeks One Impairment sitting Impairment pain with sitting 15-20 minutes Boat Detailer Goal (LTG) Pt will report that she is able to sit for at least 1 hour without L knee pain due to ergonomic changes at her desk, more frequent breaks in order to demonstrate improved QOL and activity tolerance. 12/17/23: reports less knee pain with sitting, more frequent breaks/rests and improvement with exercise LTG Duration 8 weeks Assessment Summary Assessment Patient reports pain left knee with sit to stand is the same end of session. Physical Therapy Plan Frequency and Duration Frequency of Treatment 2x/Week Duration of treatment (weeks) 8 Plan of Care Start Date 12/02/23 Plan of Care End Date 01/28/24 Next Visit Focus/Plan Next Note Type Treatment Note Next Visit Plan Next session: review side steps, trial wall haydee again glute med, trial eccentric step up/down 4; progress squat Progress LAQ, retrain squat at limited depth, hip abduction (review side steps), glute strengthening, leg press? at low resistance education activity modification, gait training prn, Glute med activation, band progression as able Manual: patellar, STM, knee mob prn, Taping
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
--- NOTE | 2023-12-28 08:52 | PT.OTN ---
Current Diagnoses Unilateral primary osteoarthritis, left knee (12/28/23) Weakness (12/28/23) Physical Therapy Treatment Note PT-OP-A Visit Information Start: 12/01/23 17:56 Freq: Status: Active Protocol: Document 12/28/23 07:31 NM (Rec: 12/28/23 08:52 NM [id number]) Out-Patient Physical Therapy Visit Information Visit Information Visit Type Progress Note Visit Note 06/02 visits Visit Start Time 07:31 Visit Stop Time 08:15 Visit Number 8 PT-OP-B Current Condition Start: 12/01/23 17:56 Freq: Status: Active Protocol: Document 12/02/23 08:15 NM (Rec: 12/02/23 11:54 NM [id number]) Current Condition History of Current Condition Onset Date 6 months ago Current Complaints stiffness, pain History of Current Condition Pt presents with L medial knee pain. Original ZOILA believed to have occured about 2 years ago, she twisted her knee getting off of a bar stool. About 6 months ago, she began to have increased stiffness in her knee with sitting, unable to walk without pain. Pain occurs with sitting 15-20 minutes, then initial 15-20 min of walking afterward. Stiffness and pain improve with movement overall. Imaging reveals degeneration. Pain occasionally occurs down the posterior knee. She is an avid hiker about 3-4x/wk, but is currently unable to hike due to pain. Her occupation requires sitting for long periods of time. Most knee pain when sitting at at desk ( max 4 hrs before get up);pain is also worse with unstable surfaces, with knee hyperextension. Reports no feelings of instability, just stiff and painful Prior Treatments and Tests October 2022 Radiograph: degeneration Prior Functional Status Baseline Function- ADL's Independent Baseline Function- Mobility Independent Baseline Function- Recreation/Hobbies hike 3-4x/wk Current Functional Impairments (Reported) Functional Limitations- Mobility/Gait sit 15-20 min then knee is painful, initial 20 min of walking Functional Limitations- Work/School Pain when sitting at her desk at work PT-OP-C Subjective Start: 12/01/23 17:56 Freq: Status: Active Protocol: Document 12/28/23 07:31 NM (Rec: 12/28/23 08:52 NM [id number]) OP-PT Subjective Patient Comments Patient Comments Pt reports that she has less knee pain when coming to stand from sitting. She no longer has pain with laying in bed, knee no longer feels unstable. Reports stretching feels really good but not doing as many feeling. Tape felt good but only immediate relief PT-OP-D Balance Start: 12/01/23 17:56 Freq: Status: Active Protocol: Document 12/02/23 08:15 NM (Rec: 12/02/23 11:54 NM [id number]) Balance Tests Single Limb Standing Single Limb- Right 10 seconds Single Limb- Left 5 seconds; not painful but unstable Tandem Tandem Standing 8 seconds PT-OP-E Functional Tests Start: 12/01/23 17:56 Freq: Status: Active Protocol: Document 12/02/23 08:15 NM (Rec: 12/02/23 11:54 NM [id number]) Functional Tests Squat Test Score 10 squats Comments pain with depth, clicking, B valgus, hip rotation PT-OP-F Manual Assessment Start: 12/01/23 17:56 Freq: Status: Active Protocol: Document 12/02/23 08:15 NM (Rec: 12/02/23 11:54 NM [id number]) Manual Assessments Soft Tissue Assessment Soft Tissue Mobility Assessment Limited B hamstring length. Tenderness of medial knee muscles near joint line Joint Mobility Assessment Joint Mobility Assessment Increased clicking/popping with knee rotation, squatting. PT-OP-G Mobility & Gait Start: 12/01/23 17:56 Freq: Status: Active Protocol: Document 12/02/23 08:15 NM (Rec: 12/02/23 11:54 NM [id number]) OP Gait Assessment Gait Gait Assistance Required: Standby Assistance Distance (Feet) 200 Assistive Devices Assistive Device None Gait Deviations General Gait Pattern Antalgic Factors Limiting Gait Function Factors Limiting Gait Function Decreased Activity Tolerance, Decreased Strength,Pain Comments Gait Comments Decreased stance time LLE, no TKE. Antalgic Stair Climbing Evaluation Evaluation Level of Assist On Stairs Independent Devices Stair Climbing Assistive Devices None Technique/Endurance Stair Climbing Direction Ascend and Descend Stair Climbing Technique Step Over Step Number of Steps Climbed 4 Stair Climbing Set # Repetitions (reps) 1 Comments Stair Climbing Comments Pain with descent, valgus at knees PT-OP-H Neuro Start: 12/01/23 17:56 Freq: Status: Active Protocol: Document 12/02/23 08:15 NM (Rec: 12/02/23 11:54 NM [id number]) Sensation Evaluation Gross Sensation Gross Sensation WNL Comments Summary Comments BLE intact to light touch sensation PT-OP-J Posture/Palpation/Skin Start: 12/01/23 17:56 Freq: Status: Active Protocol: Document 12/02/23 08:15 NM (Rec: 12/02/23 11:54 NM [id number]) Posture Evaluation Position Standing Head/C-Spine Posture Forward Head Pelvis Posture Anteriorly Tilted Weight Distribution Decreased Wt.Bear on (L) Hip Posture (L) Externally Rotated,(R) Externally Rotated Knee Posture (L) Genu Valgus,(R) Genu Valgus Patellar Posture (L) Superior,(R) Superior Foot Arch (L) Medium Arch,(R) Medium Arch Toe Posture (L) Flexed Toes,(R) Flexed Toes Palpation Assessment Location L knee Palpation Location medial knee Palpation Findings Soft Tissue Tightness, Tenderness Palpation Details Medial joint line tenderness PT-OP-K Range of Motion Start: 12/01/23 17:56 Freq: Status: Active Protocol: Document 12/28/23 07:31 NM (Rec: 12/28/23 08:52 NM [id number]) Knee Goniometric Range of Motion Knee Right Flexion Active (degrees) 140 Extension Active (degrees) 0 Left Flexion Active (degrees) 135 Extension Active (degrees) 3 Extension Passive (degrees) 0 Comments 12/28/23: 145 deg flex, 0 deg ext, no pain PT-OP-L Special Tests Start: 12/01/23 17:56 Freq: Status: Active Protocol: Document 12/02/23 08:15 NM (Rec: 12/02/23 11:54 NM [id number]) Special Tests Knee Special Tests Patellar Grind Test Test Results + Valgus Test Results - Comments 0, 30 deg Varus Test Results - Comments 0, 30 deg Posterior Draw Test Results - Posterior Sag Test Results - Nisa's Test Results - Anterior Draw Test Results - Apley's Compression Test Results + Kaela Test Test Results + PT-OP-M Strength Start: 12/01/23 17:56 Freq: Status: Active Protocol: Document 12/28/23 07:31 NM (Rec: 12/28/23 08:52 NM [id number]) Hip Strength Hip Manual Muscle Testing Left Flexion (L2) 4 Good Extension (S1) 4 Good Abduction 4 Good Adduction 4 Good External Rotation 4 Good Internal Rotation 4 Good Comments 12/28/23: 4+/5 hip ext, 4/5 hip abd, Knee Strength Knee Manual Muscle Testing Left Flexion (S2) 4 Good Extension (L3) 4 Good Comments no pain PT-OP-Q Treatments Start: 12/01/23 17:56 Freq: Status: Active Protocol: Document 12/28/23 07:31 NM (Rec: 12/28/23 08:52 NM [id number]) Therapeutic Exercises Sitting Exercises seated hip abduction with band Resistance level 3 band Reps/Minutes 1x60 Comments reports more stable; prior to squats hamstring stretch Sitting Exercise Name with LE on mat seated then with LE on floor hip hinge Side left Reps/Minutes 2x60 Comments post manual therapy, reports good stretch Standing Exercises sammarinese squat Side bilateral Resistance lvl 2 tb ea leg Equipment Used looped around //bar post Reps/Minutes 2x8 Comments pain free, cued for hip hinge, able to perform deeper squat w/ TKE lateral step up Standing Exercise Name 4 step up Side left Reps/Minutes 2x8 Comments pain free; cued for hip hinge, knee centered over ankle hip 3 way Standing Exercise Name hip flex/abd/ext with return to center Side bilateral Resistance lvl 3 tb around thighs Reps/Minutes 1x5 ea Comments pain free but feels glutes everywhere, cue for control 4 inch step up Standing Exercise Name 1. 4 TKE step up, 2. full 4 step up Side left Reps/Minutes 1. 2x8, 2.2x5 Comments no pain/pinch in knee with hip hinge calf stretch on step Standing Exercise Name 1. gastroc, 2. soleus Equipment Used feet elevated on step Reps/Minutes 1x60 ea Comments reports good stretch, pain free squat Side bilateral Resistance lvl 3 tb around thighs Equipment Used mirror for visual cues Reps/Minutes 1x5 AROM, 1x10 with band Comments improved hip hinge, slight knee valgus with inc depth, pain free Manual Therapy Treatment Soft Tissue Mobilization L thigh Body Location hamstring, calf, quad, adductors, hip flexors Mobilization Type Cross-Friction,Instrument Assisted,Rolling Intensity/Depth Moderate Body Position Hooklying Comments Emphasis on hamstrings for soft tissue length, tenderness along medial aspect of hamstring, likely bursa. Calf, hamstring tightness, followed by stretching. Reports good symptom improvement post STM Joint Mobilizations left patella Joint inf, sup, CW and CCW, medial Grade III Body Position Supine Reps/Duration 1x10 ea Comments Decreased mobility superiorly and medially, monitored for pain, none reported. Demos crepitus but not painful Self-Care/Home Management Treatment Education Patient Education Home Exercise Program Other Education hip 3 way with level 3 band PT-OP-T Assessment and Plan Start: 12/01/23 17:56 Freq: Status: Active Protocol: Document 12/28/23 07:31 NM (Rec: 12/28/23 08:52 NM [id number]) Physical Therapy Assessment Goals Five Impairment AROM Impairment L knee extension -3 deg Fuel Agent Goal (LTG) Pt will achieve L terminal knee extension AROM of 0 deg in order to demonstrate improved L knee stability during gait, stairs, and ADLs. 12/17/23: 0 deg TKE post mobilization 12/28/23: 0 deg knee ext LTG Duration 8 weeks MET Four Impairment activity Impairment pain with ambulation, hiking for 20 minutes Skilled Nursing Goal (LTG) Pt will report that she is able to ambulate or hike at least 30 minutes with L knee pain <4/10 in order to demonstrate improved activity tolerance 12/28/23: Pt reports that she can ambulate/not hike for at least 30 minutes w/o pain LTG Duration 8 weeks PROGRESSING Three Impairment balance Impairment SLS 8 sec LLE Short Term Goal (STG) Pt will improve L single leg stance to at least 15 seconds in order to demonstrate improved L knee stability during gait and hiking 12/17/23: initiated in PT 15 sec SLS w prn wall support STG Duration 4 weeks PROGRESSING Skilled Nursing Goal (LTG) Pt will improve L single leg stance to at least 20 seconds in order to demonstrate improved L knee stability during gait and hiking LTG Duration 8 weeks Two Impairment function Impairment 10 squats Short Term Goal (STG) Pt will be able to perform at least 10 bilateral squats with pain <3/10 and without compensation in order to demonstrate increased BLE strength and stability for gait, ADLs 12/17/23: initiated chair squat w band, no pain with depth 80 deg body weight squat 12/28/23: 10 squats without pain using band, increased depth to chair with hip hinge STG Duration 4 weeks MET Skilled Nursing Goal (LTG) Pt will be able to perform at least 10 bilateral squats without pain and without compensation in order to demonstrate increased BLE strength and stability for gait, ADLs LTG Duration 8 weeks One Impairment sitting Impairment pain with sitting 15-20 minutes Fuel Agent Goal (LTG) Pt will report that she is able to sit for at least 1 hour without L knee pain due to ergonomic changes at her desk, more frequent breaks in order to demonstrate improved QOL and activity tolerance. 12/17/23: reports less knee pain with sitting, more frequent breaks/rests and improvement with exercise 12/28/23: Pt reports that she can sit at least 1 hr before taking a break due to pain LTG Duration 8 weeks PROGRESSING Assessment Summary Assessment Pt tolerated session well. She did not have knee pain above 1/10 with step up, but this was reduced with addition of hip hinge and glute activation . Pt continues to demonstrate quad dominance with step up, gait, and stance; however, when cued for greater glute max/med activation, pt has improved mechanics, symptom management, and tolerance for activity. Continued with step ups on 4 with emphasis on TKE and limiting valgus moment. Initiated hip 3 way, sammarinese squat, and lateral step up for glute strength; pt with good tolerance for activity. Pt has been seen x7 visits since IE in November 2023 for L knee pain. She is progressing toward goals and reports improvements in overall pain management, activity modification related to symptom management, and ability to participate in ADLs /IADLs. Although she continues to experience pain with activity and at rest, pt reports improvements in sleep, ability to sit, and participate in exercise. She has had moderate compliance with HEP. Pt is progressing well with glute strengthening activities to offload quad and improve L knee mechanics. She demos improved L hip/knee strength and AROM. Pt would benefit from skilled PT for progressive L hip/knee strengthening, stabilization, and body mechanics training to improve symptom management, improve activity tolerance and QOL. Physical Therapy Plan Frequency and Duration Frequency of Treatment 2x/Week Duration of treatment (weeks) 8 Plan of Care Start Date 12/02/23 Plan of Care End Date 01/28/24 Therapeutic Interventions Therapeutic Interventions Aquatic Therapy,Balance Training,Coordination Training ,Gait Training,Home Exercise Program,Joint Mobilizations, Manual Therapy,Neuromuscular Re-education,Orthotic/ Prosthetic Management,Patient/ Caregiver Education,Self-Care/ Home Management,Sensory Integration,Soft Tissue Mobilization,Taping, Therapeutic Activities, Therapeutic Exercises Modalities Cold Pack/Ice Massage,Electric Stimulation,Hot Packs, Ultrasound,Vasopneumatic Devices Next Visit Focus/Plan Next Note Type Treatment Note Next Visit Plan focus on end range quad strengthening without pain or pinching, assess leanna to taping , glute med activations, trial of 2 inch step up stepback. Next session: hip 3 ways/clock , lateral step up, SLS/balance , RDL/deadlift Progress LAQ, retrain squat at limited depth, hip abduction glute strengthening, leg press? at low resistance education activity modification, gait training prn, Manual: patellar, STM, knee mob prn,
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
--- NOTE | 2024-01-03 12:49 | PT.OTN ---
Current Diagnoses Unilateral primary osteoarthritis, left knee (01/03/24) Weakness (01/03/24) Physical Therapy Treatment Note PT-OP-A Visit Information Start: 12/01/23 17:56 Freq: Status: Active Protocol: Document 01/03/24 08:06 AB (Rec: 01/03/24 09:00 AB [id number]) Out-Patient Physical Therapy Visit Information Visit Information Visit Type Treatment Note Visit Note 08/02 12/11 for PN Visit Start Time 08:15 Visit Stop Time 08:59 Visit Number 10 Number of LIFE SCIENCES DIRECTOR Visits 2 Evaluation Information Evaluation Date 12/02/23 Precautions Precautions No twisting, limit squat depth and unstable surfaces PT-OP-B Current Condition Start: 12/01/23 17:56 Freq: Status: Active Protocol: Document 12/02/23 08:15 NM (Rec: 12/02/23 11:54 NM [id number]) Current Condition History of Current Condition Onset Date 6 months ago Current Complaints stiffness, pain History of Current Condition Pt presents with L medial knee pain. Original ZOILA believed to have occured about 2 years ago, she twisted her knee getting off of a bar stool. About 6 months ago, she began to have increased stiffness in her knee with sitting, unable to walk without pain. Pain occurs with sitting 15-20 minutes, then initial 15-20 min of walking afterward. Stiffness and pain improve with movement overall. Imaging reveals degeneration. Pain occasionally occurs down the posterior knee. She is an avid hiker about 3-4x/wk, but is currently unable to hike due to pain. Her occupation requires sitting for long periods of time. Most knee pain when sitting at at desk ( max 4 hrs before get up);pain is also worse with unstable surfaces, with knee hyperextension. Reports no feelings of instability, just stiff and painful Prior Treatments and Tests October 2022 Radiograph: degeneration Prior Functional Status Baseline Function- ADL's Independent Baseline Function- Mobility Independent Baseline Function- Recreation/Hobbies hike 3-4x/wk Current Functional Impairments (Reported) Functional Limitations- Mobility/Gait sit 15-20 min then knee is painful, initial 20 min of walking Functional Limitations- Work/School Pain when sitting at her desk at work PT-OP-C Subjective Start: 12/01/23 17:56 Freq: Status: Active Protocol: Document 01/03/24 08:06 AB (Rec: 01/03/24 09:00 AB [id number]) OP-PT Subjective Patient Comments Patient Comments Patient reports she biked this weekend and less than 1/4 hikes with no increased knee pain. PT-OP-D Balance Start: 12/01/23 17:56 Freq: Status: Active Protocol: Document 12/02/23 08:15 NM (Rec: 12/02/23 11:54 NM [id number]) Balance Tests Single Limb Standing Single Limb- Right 10 seconds Single Limb- Left 5 seconds; not painful but unstable Tandem Tandem Standing 8 seconds PT-OP-E Functional Tests Start: 12/01/23 17:56 Freq: Status: Active Protocol: Document 12/02/23 08:15 NM (Rec: 12/02/23 11:54 NM [id number]) Functional Tests Squat Test Score 10 squats Comments pain with depth, clicking, B valgus, hip rotation PT-OP-F Manual Assessment Start: 12/01/23 17:56 Freq: Status: Active Protocol: Document 12/02/23 08:15 NM (Rec: 12/02/23 11:54 NM [id number]) Manual Assessments Soft Tissue Assessment Soft Tissue Mobility Assessment Limited B hamstring length. Tenderness of medial knee muscles near joint line Joint Mobility Assessment Joint Mobility Assessment Increased clicking/popping with knee rotation, squatting. PT-OP-G Mobility & Gait Start: 12/01/23 17:56 Freq: Status: Active Protocol: Document 12/02/23 08:15 NM (Rec: 12/02/23 11:54 NM [id number]) OP Gait Assessment Gait Gait Assistance Required: Standby Assistance Distance (Feet) 200 Assistive Devices Assistive Device None Gait Deviations General Gait Pattern Antalgic Factors Limiting Gait Function Factors Limiting Gait Function Decreased Activity Tolerance, Decreased Strength,Pain Comments Gait Comments Decreased stance time LLE, no TKE. Antalgic Stair Climbing Evaluation Evaluation Level of Assist On Stairs Independent Devices Stair Climbing Assistive Devices None Technique/Endurance Stair Climbing Direction Ascend and Descend Stair Climbing Technique Step Over Step Number of Steps Climbed 4 Stair Climbing Set # Repetitions (reps) 1 Comments Stair Climbing Comments Pain with descent, valgus at knees PT-OP-H Neuro Start: 12/01/23 17:56 Freq: Status: Active Protocol: Document 12/02/23 08:15 NM (Rec: 12/02/23 11:54 NM [id number]) Sensation Evaluation Gross Sensation Gross Sensation WNL Comments Summary Comments BLE intact to light touch sensation PT-OP-J Posture/Palpation/Skin Start: 12/01/23 17:56 Freq: Status: Active Protocol: Document 12/02/23 08:15 NM (Rec: 12/02/23 11:54 NM [id number]) Posture Evaluation Position Standing Head/C-Spine Posture Forward Head Pelvis Posture Anteriorly Tilted Weight Distribution Decreased Wt.Bear on (L) Hip Posture (L) Externally Rotated,(R) Externally Rotated Knee Posture (L) Genu Valgus,(R) Genu Valgus Patellar Posture (L) Superior,(R) Superior Foot Arch (L) Medium Arch,(R) Medium Arch Toe Posture (L) Flexed Toes,(R) Flexed Toes Palpation Assessment Location L knee Palpation Location medial knee Palpation Findings Soft Tissue Tightness, Tenderness Palpation Details Medial joint line tenderness PT-OP-K Range of Motion Start: 12/01/23 17:56 Freq: Status: Active Protocol: Document 12/28/23 07:31 NM (Rec: 12/28/23 08:52 NM [id number]) Knee Goniometric Range of Motion Knee Right Flexion Active (degrees) 140 Extension Active (degrees) 0 Left Flexion Active (degrees) 135 Extension Active (degrees) 3 Extension Passive (degrees) 0 Comments 12/28/23: 145 deg flex, 0 deg ext, no pain PT-OP-L Special Tests Start: 12/01/23 17:56 Freq: Status: Active Protocol: Document 12/02/23 08:15 NM (Rec: 12/02/23 11:54 NM [id number]) Special Tests Knee Special Tests Patellar Grind Test Test Results + Valgus Test Results - Comments 0, 30 deg Varus Test Results - Comments 0, 30 deg Posterior Draw Test Results - Posterior Sag Test Results - Nisa's Test Results - Anterior Draw Test Results - Apley's Compression Test Results + Kaela Test Test Results + PT-OP-M Strength Start: 12/01/23 17:56 Freq: Status: Active Protocol: Document 12/28/23 07:31 NM (Rec: 12/28/23 08:52 NM [id number]) Hip Strength Hip Manual Muscle Testing Left Flexion (L2) 4 Good Extension (S1) 4 Good Abduction 4 Good Adduction 4 Good External Rotation 4 Good Internal Rotation 4 Good Comments 12/28/23: 4+/5 hip ext, 4/5 hip abd, Knee Strength Knee Manual Muscle Testing Left Flexion (S2) 4 Good Extension (L3) 4 Good Comments no pain PT-OP-Q Treatments Start: 12/01/23 17:56 Freq: Status: Active Protocol: Document 01/03/24 08:06 AB (Rec: 01/03/24 09:00 AB [id number]) Therapeutic Exercises Supine Exercises hamstring stretch Supine Exercise Name from hooklying Side bilateral Reps/Minutes 60 seconds X2 Sidelying Exercises hip abduction Side bilateral Resistance light blue band Reps/Minutes 2X15 Comments VC to decrease velocity Standing Exercises single leg lift to chair height Reps/Minutes X10 Comments Verbal and visual cues 2 inch step up Standing Exercise Name step up step back Reps/Minutes 2X14 Comments monitored for pain hip 3 way Standing Exercise Name hip flex/abd/ext with return to center Side bilateral Resistance lvl 3 tb around thighs Reps/Minutes 2x5 ea Comments pre and post manual/glute med activation 4 inch step up Equipment Used X3 Comments not leanna glute med isometric Side bilateral Reps/Minutes one minute left and right LE Comments Verbal and visual cues Manual Therapy Treatment Soft Tissue Mobilization left quad, peripatellar are and pes anserine area Mobilization Type Cross-Friction,Rolling Intensity/Depth Moderate Body Position Hooklying Comments Monitored for pain, performed prior to exercise left hamstring Mobilization Type Cross-Friction,Rolling Intensity/Depth Moderate Body Position Hooklying Joint Mobilizations left patella Joint inf, sup, CW and CCW, medial Grade III Body Position Supine Reps/Duration 1x10 ea Comments Decreased mobility superiorly and medially, monitored for pain, none reported. Demos crepitus but not painful Neuro Re-Education Treatment Balance Activities SLS Details with visual scanning Surface on foam Reps/Duration 1 min Self-Care/Home Management Treatment Education Patient Education Home Exercise Program PT-OP-T Assessment and Plan Start: 12/01/23 17:56 Freq: Status: Active Protocol: Document 01/03/24 08:06 AB (Rec: 01/03/24 09:00 AB [id number]) Physical Therapy Assessment Goals Five Impairment AROM Impairment L knee extension -3 deg Bag Filler Goal (LTG) Pt will achieve L terminal knee extension AROM of 0 deg in order to demonstrate improved L knee stability during gait, stairs, and ADLs. 12/17/23: 0 deg TKE post mobilization 12/28/23: 0 deg knee ext LTG Duration 8 weeks MET Four Impairment activity Impairment pain with ambulation, hiking for 20 minutes Bag Filler Goal (LTG) Pt will report that she is able to ambulate or hike at least 30 minutes with L knee pain <4/10 in order to demonstrate improved activity tolerance 12/28/23: Pt reports that she can ambulate/not hike for at least 30 minutes w/o pain LTG Duration 8 weeks PROGRESSING Three Impairment balance Impairment SLS 8 sec LLE Short Term Goal (STG) Pt will improve L single leg stance to at least 15 seconds in order to demonstrate improved L knee stability during gait and hiking 12/17/23: initiated in PT 15 sec SLS w prn wall support STG Duration 4 weeks PROGRESSING Correction Goal (LTG) Pt will improve L single leg stance to at least 20 seconds in order to demonstrate improved L knee stability during gait and hiking LTG Duration 8 weeks Two Impairment function Impairment 10 squats Short Term Goal (STG) Pt will be able to perform at least 10 bilateral squats with pain <3/10 and without compensation in order to demonstrate increased BLE strength and stability for gait, ADLs 12/17/23: initiated chair squat w band, no pain with depth 80 deg body weight squat 12/28/23: 10 squats without pain using band, increased depth to chair with hip hinge STG Duration 4 weeks MET Bag Filler Goal (LTG) Pt will be able to perform at least 10 bilateral squats without pain and without compensation in order to demonstrate increased BLE strength and stability for gait, ADLs LTG Duration 8 weeks One Impairment sitting Impairment pain with sitting 15-20 minutes Bag Filler Goal (LTG) Pt will report that she is able to sit for at least 1 hour without L knee pain due to ergonomic changes at her desk, more frequent breaks in order to demonstrate improved QOL and activity tolerance. 12/17/23: reports less knee pain with sitting, more frequent breaks/rests and improvement with exercise 12/28/23: Pt reports that she can sit at least 1 hr before taking a break due to pain LTG Duration 8 weeks PROGRESSING Assessment Summary Assessment Tia reports left knee 4 inch step up at 95% compared to right knee ie less pain compared to start of session . Physical Therapy Plan Frequency and Duration Frequency of Treatment 2x/Week Duration of treatment (weeks) 8 Plan of Care Start Date 12/02/23 Plan of Care End Date 01/28/24 Next Visit Focus/Plan Next Visit Plan focus on end range quad strengthening without pain or pinching, trial of 4 inch step up stepback ( post manual therapy, HS stretch 3 way clock and glute med activation ). Next session: hip 3 ways/ clock, lateral step up, SLS/ balance, RDL/deadlift Progress LAQ, retrain squat at limited depth, hip abduction glute strengthening, leg press? at low resistance education activity modification, gait training prn, Manual: patellar, STM, knee mob prn,
--- NOTE | 2024-01-05 08:16 | PT.OTN ---
Current Diagnoses Unilateral primary osteoarthritis, left knee (01/05/24) Weakness (01/05/24) Physical Therapy Treatment Note PT-OP-A Visit Information Start: 12/01/23 17:56 Freq: Status: Active Protocol: Document 01/05/24 07:29 NM (Rec: 01/05/24 08:15 NM [id number]) Out-Patient Physical Therapy Visit Information Visit Information Visit Type Treatment Note Visit Note 09/02 12/11 for PN Visit Start Time 07:30 Visit Stop Time 08:12 Visit Number 11 PT-OP-B Current Condition Start: 12/01/23 17:56 Freq: Status: Active Protocol: Document 12/02/23 08:15 NM (Rec: 12/02/23 11:54 NM [id number]) Current Condition History of Current Condition Onset Date 6 months ago Current Complaints stiffness, pain History of Current Condition Pt presents with L medial knee pain. Original ZOILA believed to have occured about 2 years ago, she twisted her knee getting off of a bar stool. About 6 months ago, she began to have increased stiffness in her knee with sitting, unable to walk without pain. Pain occurs with sitting 15-20 minutes, then initial 15-20 min of walking afterward. Stiffness and pain improve with movement overall. Imaging reveals degeneration. Pain occasionally occurs down the posterior knee. She is an avid hiker about 3-4x/wk, but is currently unable to hike due to pain. Her occupation requires sitting for long periods of time. Most knee pain when sitting at at desk ( max 4 hrs before get up);pain is also worse with unstable surfaces, with knee hyperextension. Reports no feelings of instability, just stiff and painful Prior Treatments and Tests October 2022 Radiograph: degeneration Prior Functional Status Baseline Function- ADL's Independent Baseline Function- Mobility Independent Baseline Function- Recreation/Hobbies hike 3-4x/wk Current Functional Impairments (Reported) Functional Limitations- Mobility/Gait sit 15-20 min then knee is painful, initial 20 min of walking Functional Limitations- Work/School Pain when sitting at her desk at work PT-OP-C Subjective Start: 12/01/23 17:56 Freq: Status: Active Protocol: Document 01/05/24 07:29 NM (Rec: 01/05/24 08:15 NM [id number]) OP-PT Subjective Patient Comments Patient Comments Pt reports that her knee is feeling a lot better, loosens up a lot quicker, less pain when moving to standing. Overall, reports improvement. She has been biking alot. Pain levels normally 2-3/10 vs 4/10. No pain when wakin gup PT-OP-D Balance Start: 12/01/23 17:56 Freq: Status: Active Protocol: Document 12/02/23 08:15 NM (Rec: 12/02/23 11:54 NM [id number]) Balance Tests Single Limb Standing Single Limb- Right 10 seconds Single Limb- Left 5 seconds; not painful but unstable Tandem Tandem Standing 8 seconds PT-OP-E Functional Tests Start: 12/01/23 17:56 Freq: Status: Active Protocol: Document 12/02/23 08:15 NM (Rec: 12/02/23 11:54 NM [id number]) Functional Tests Squat Test Score 10 squats Comments pain with depth, clicking, B valgus, hip rotation PT-OP-F Manual Assessment Start: 12/01/23 17:56 Freq: Status: Active Protocol: Document 12/02/23 08:15 NM (Rec: 12/02/23 11:54 NM [id number]) Manual Assessments Soft Tissue Assessment Soft Tissue Mobility Assessment Limited B hamstring length. Tenderness of medial knee muscles near joint line Joint Mobility Assessment Joint Mobility Assessment Increased clicking/popping with knee rotation, squatting. PT-OP-G Mobility & Gait Start: 12/01/23 17:56 Freq: Status: Active Protocol: Document 12/02/23 08:15 NM (Rec: 12/02/23 11:54 NM [id number]) OP Gait Assessment Gait Gait Assistance Required: Standby Assistance Distance (Feet) 200 Assistive Devices Assistive Device None Gait Deviations General Gait Pattern Antalgic Factors Limiting Gait Function Factors Limiting Gait Function Decreased Activity Tolerance, Decreased Strength,Pain Comments Gait Comments Decreased stance time LLE, no TKE. Antalgic Stair Climbing Evaluation Evaluation Level of Assist On Stairs Independent Devices Stair Climbing Assistive Devices None Technique/Endurance Stair Climbing Direction Ascend and Descend Stair Climbing Technique Step Over Step Number of Steps Climbed 4 Stair Climbing Set # Repetitions (reps) 1 Comments Stair Climbing Comments Pain with descent, valgus at knees PT-OP-H Neuro Start: 12/01/23 17:56 Freq: Status: Active Protocol: Document 12/02/23 08:15 NM (Rec: 12/02/23 11:54 NM [id number]) Sensation Evaluation Gross Sensation Gross Sensation WNL Comments Summary Comments BLE intact to light touch sensation PT-OP-J Posture/Palpation/Skin Start: 12/01/23 17:56 Freq: Status: Active Protocol: Document 12/02/23 08:15 NM (Rec: 12/02/23 11:54 NM [id number]) Posture Evaluation Position Standing Head/C-Spine Posture Forward Head Pelvis Posture Anteriorly Tilted Weight Distribution Decreased Wt.Bear on (L) Hip Posture (L) Externally Rotated,(R) Externally Rotated Knee Posture (L) Genu Valgus,(R) Genu Valgus Patellar Posture (L) Superior,(R) Superior Foot Arch (L) Medium Arch,(R) Medium Arch Toe Posture (L) Flexed Toes,(R) Flexed Toes Palpation Assessment Location L knee Palpation Location medial knee Palpation Findings Soft Tissue Tightness, Tenderness Palpation Details Medial joint line tenderness PT-OP-K Range of Motion Start: 12/01/23 17:56 Freq: Status: Active Protocol: Document 12/28/23 07:31 NM (Rec: 12/28/23 08:52 NM [id number]) Knee Goniometric Range of Motion Knee Right Flexion Active (degrees) 140 Extension Active (degrees) 0 Left Flexion Active (degrees) 135 Extension Active (degrees) 3 Extension Passive (degrees) 0 Comments 12/28/23: 145 deg flex, 0 deg ext, no pain PT-OP-L Special Tests Start: 12/01/23 17:56 Freq: Status: Active Protocol: Document 12/02/23 08:15 NM (Rec: 12/02/23 11:54 NM [id number]) Special Tests Knee Special Tests Patellar Grind Test Test Results + Valgus Test Results - Comments 0, 30 deg Varus Test Results - Comments 0, 30 deg Posterior Draw Test Results - Posterior Sag Test Results - Nisa's Test Results - Anterior Draw Test Results - Apley's Compression Test Results + Kaela Test Test Results + PT-OP-M Strength Start: 12/01/23 17:56 Freq: Status: Active Protocol: Document 12/28/23 07:31 NM (Rec: 12/28/23 08:52 NM [id number]) Hip Strength Hip Manual Muscle Testing Left Flexion (L2) 4 Good Extension (S1) 4 Good Abduction 4 Good Adduction 4 Good External Rotation 4 Good Internal Rotation 4 Good Comments 12/28/23: 4+/5 hip ext, 4/5 hip abd, Knee Strength Knee Manual Muscle Testing Left Flexion (S2) 4 Good Extension (L3) 4 Good Comments no pain PT-OP-Q Treatments Start: 12/01/23 17:56 Freq: Status: Active Protocol: Document 01/05/24 07:29 NM (Rec: 01/05/24 08:15 NM [id number]) Therapeutic Exercises Supine Exercises hamstring stretch Supine Exercise Name from hooklying Side bilateral Reps/Minutes 2x60 Comments pain free Standing Exercises single leg squat Standing Exercise Name trialed in PT: with hand support on chair Side bilateral Equipment Used mirror for visual cues Reps/Minutes 2x5 Comments cued level pelvis, full TKE, hip hinge; pain free quad stretch Side bilateral Reps/Minutes 1x60 Comments reports good stretch, pain free single leg lift to chair height Side bilateral Equipment Used to chair; mirror for visual cues Reps/Minutes 2x5 Comments cues hip hinge, no knee valgus , neutral spine hip 3 way Standing Exercise Name hip flex/abd/ext with return to center Side bilateral Resistance lvl 3 tb around thighs Reps/Minutes 2x8 ea Comments pain free, more stable on LLE stance; cued hip hinge for glute Manual Therapy Treatment Soft Tissue Mobilization left quad, peripatellar are and pes anserine area Mobilization Type Cross-Friction,Instrument Assisted,Rolling Intensity/Depth Moderate Body Position Hooklying Comments Tenderness at L pes anserine Monitored for pain, performed prior to exercise left hamstring Mobilization Type Cross-Friction,Instrument Assisted,Rolling Intensity/Depth Moderate Body Position Hooklying Comments Tenderness and palpable nodule at medial distal hamstring insertion. Performed prior to stretching, exercise Joint Mobilizations left patella Joint inf, sup, CW and CCW, medial Grade III Body Position Supine Reps/Duration 1x10 ea Comments Decreased mobility superiorly and medially, monitored for pain, none reported. No crepitus today Neuro Re-Education Treatment Balance Activities rocker board Details squat hold Equipment unstable Reps/Duration 60 A/P, 60 M/L, 60 ea with perturbations Comments Cued for hip hinge, deeper squat, maintain level board SLS Details with visual scanning Equipment prn finger support, hands hover //bars Comments 1. stable surface, 1x60 ea 2. foam surface, 1x60 ea Cued TYLER over midfoot PT-OP-T Assessment and Plan Start: 12/01/23 17:56 Freq: Status: Active Protocol: Document 01/05/24 07:29 NM (Rec: 01/05/24 08:15 NM [id number]) Physical Therapy Assessment Goals Five Impairment AROM Impairment L knee extension -3 deg Medical Information Specialist Goal (LTG) Pt will achieve L terminal knee extension AROM of 0 deg in order to demonstrate improved L knee stability during gait, stairs, and ADLs. 12/17/23: 0 deg TKE post mobilization 12/28/23: 0 deg knee ext LTG Duration 8 weeks MET Four Impairment activity Impairment pain with ambulation, hiking for 20 minutes Alf Goal (LTG) Pt will report that she is able to ambulate or hike at least 30 minutes with L knee pain <4/10 in order to demonstrate improved activity tolerance 12/28/23: Pt reports that she can ambulate/not hike for at least 30 minutes w/o pain LTG Duration 8 weeks PROGRESSING Three Impairment balance Impairment SLS 8 sec LLE Short Term Goal (STG) Pt will improve L single leg stance to at least 15 seconds in order to demonstrate improved L knee stability during gait and hiking 12/17/23: initiated in PT 15 sec SLS w prn wall support STG Duration 4 weeks PROGRESSING Medical Information Specialist Goal (LTG) Pt will improve L single leg stance to at least 20 seconds in order to demonstrate improved L knee stability during gait and hiking LTG Duration 8 weeks Two Impairment function Impairment 10 squats Short Term Goal (STG) Pt will be able to perform at least 10 bilateral squats with pain <3/10 and without compensation in order to demonstrate increased BLE strength and stability for gait, ADLs 12/17/23: initiated chair squat w band, no pain with depth 80 deg body weight squat 12/28/23: 10 squats without pain using band, increased depth to chair with hip hinge STG Duration 4 weeks MET Medical Information Specialist Goal (LTG) Pt will be able to perform at least 10 bilateral squats without pain and without compensation in order to demonstrate increased BLE strength and stability for gait, ADLs LTG Duration 8 weeks One Impairment sitting Impairment pain with sitting 15-20 minutes Alf Goal (LTG) Pt will report that she is able to sit for at least 1 hour without L knee pain due to ergonomic changes at her desk, more frequent breaks in order to demonstrate improved QOL and activity tolerance. 12/17/23: reports less knee pain with sitting, more frequent breaks/rests and improvement with exercise 12/28/23: Pt reports that she can sit at least 1 hr before taking a break due to pain LTG Duration 8 weeks PROGRESSING Assessment Summary Assessment Pt with good tolerance for exercise today. She demos improved L knee stability/ control during hip 3 way and step up. Trialed single leg squat with hand support for quad/glute strength. Pain free during single leg squat, but cued for full TKE. Pt requires tactile and verbal cues for hip hinge during single leg RDL, single leg squat. Initiated single leg balance training on stable and unstable surfaces. Tia challenged with perturbations, but demos good ability to adapt to stabilize, pain free. Pt reports soreness at end of session. Manual treatment to decrease soft tissue restrictions of L thigh, improve tissue length. She has a palpable nodule near pes anserine and distal hamstring, likely a bursa. Pt would benefit from skilled PT for progressive L knee strengthening and stabilization training in order to decrease pain symptoms and improve activity tolerance. Physical Therapy Plan Frequency and Duration Frequency of Treatment 2x/Week Duration of treatment (weeks) 8 Plan of Care Start Date 12/02/23 Plan of Care End Date 01/28/24 Therapeutic Interventions Therapeutic Interventions Aquatic Therapy,Balance Training,Coordination Training ,Gait Training,Home Exercise Program,Joint Mobilizations, Manual Therapy,Neuromuscular Re-education,Orthotic/ Prosthetic Management,Patient/ Caregiver Education,Self-Care/ Home Management,Sensory Integration,Soft Tissue Mobilization,Taping, Therapeutic Activities, Therapeutic Exercises Modalities Cold Pack/Ice Massage,Electric Stimulation,Hot Packs, Ultrasound,Vasopneumatic Devices Next Visit Focus/Plan Next Visit Plan Next session: single leg stability (RDL, balance, squat ), pain free TKE and step up, lateral step down ocus on end range quad strengthening without pain or pinching, trial of 4 inch step up stepback ( post manual therapy, HS stretch 3 way clock and glute med activation ). Next session: hip 3 ways/ clock, lateral step up, SLS/ balance, RDL/deadlift Progress LAQ, retrain squat at limited depth, hip abduction glute strengthening, leg press? at low resistance education activity modification, gait training prn, Manual: patellar, STM, knee mob prn,
--- NOTE | 2024-01-10 17:27 | PT.OTN ---
Current Diagnoses Unilateral primary osteoarthritis, left knee (01/10/24) Weakness (01/10/24) Physical Therapy Treatment Note PT-OP-A Visit Information Start: 12/01/23 17:56 Freq: Status: Active Protocol: Document 01/10/24 08:07 AB (Rec: 01/10/24 09:02 AB [id number]) Out-Patient Physical Therapy Visit Information Visit Information Visit Type Treatment Note Visit Note 10/02 5/10 Visit Start Time 08:15 Visit Stop Time 09:00 Visit Number 12 Number of ACCOUNTING ANALYST Visits 1 Evaluation Information Evaluation Date 12/02/23 Precautions Precautions No twisting, limit squat depth and unstable surfaces PT-OP-B Current Condition Start: 12/01/23 17:56 Freq: Status: Active Protocol: Document 12/02/23 08:15 NM (Rec: 12/02/23 11:54 NM [id number]) Current Condition History of Current Condition Onset Date 6 months ago Current Complaints stiffness, pain History of Current Condition Pt presents with L medial knee pain. Original ZOILA believed to have occured about 2 years ago, she twisted her knee getting off of a bar stool. About 6 months ago, she began to have increased stiffness in her knee with sitting, unable to walk without pain. Pain occurs with sitting 15-20 minutes, then initial 15-20 min of walking afterward. Stiffness and pain improve with movement overall. Imaging reveals degeneration. Pain occasionally occurs down the posterior knee. She is an avid hiker about 3-4x/wk, but is currently unable to hike due to pain. Her occupation requires sitting for long periods of time. Most knee pain when sitting at at desk ( max 4 hrs before get up);pain is also worse with unstable surfaces, with knee hyperextension. Reports no feelings of instability, just stiff and painful Prior Treatments and Tests October 2022 Radiograph: degeneration Prior Functional Status Baseline Function- ADL's Independent Baseline Function- Mobility Independent Baseline Function- Recreation/Hobbies hike 3-4x/wk Current Functional Impairments (Reported) Functional Limitations- Mobility/Gait sit 15-20 min then knee is painful, initial 20 min of walking Functional Limitations- Work/School Pain when sitting at her desk at work PT-OP-C Subjective Start: 12/01/23 17:56 Freq: Status: Active Protocol: Document 01/10/24 08:07 AB (Rec: 01/10/24 09:02 AB [id number]) OP-PT Subjective Patient Comments Patient Comments Patient reports she didn't do as much exercise this weekend, which made her stiffer. AROM left knee extension lacking 6 deg. PT-OP-D Balance Start: 12/01/23 17:56 Freq: Status: Active Protocol: Document 12/02/23 08:15 NM (Rec: 12/02/23 11:54 NM [id number]) Balance Tests Single Limb Standing Single Limb- Right 10 seconds Single Limb- Left 5 seconds; not painful but unstable Tandem Tandem Standing 8 seconds PT-OP-E Functional Tests Start: 12/01/23 17:56 Freq: Status: Active Protocol: Document 12/02/23 08:15 NM (Rec: 12/02/23 11:54 NM [id number]) Functional Tests Squat Test Score 10 squats Comments pain with depth, clicking, B valgus, hip rotation PT-OP-F Manual Assessment Start: 12/01/23 17:56 Freq: Status: Active Protocol: Document 12/02/23 08:15 NM (Rec: 12/02/23 11:54 NM [id number]) Manual Assessments Soft Tissue Assessment Soft Tissue Mobility Assessment Limited B hamstring length. Tenderness of medial knee muscles near joint line Joint Mobility Assessment Joint Mobility Assessment Increased clicking/popping with knee rotation, squatting. PT-OP-G Mobility & Gait Start: 12/01/23 17:56 Freq: Status: Active Protocol: Document 12/02/23 08:15 NM (Rec: 12/02/23 11:54 NM [id number]) OP Gait Assessment Gait Gait Assistance Required: Standby Assistance Distance (Feet) 200 Assistive Devices Assistive Device None Gait Deviations General Gait Pattern Antalgic Factors Limiting Gait Function Factors Limiting Gait Function Decreased Activity Tolerance, Decreased Strength,Pain Comments Gait Comments Decreased stance time LLE, no TKE. Antalgic Stair Climbing Evaluation Evaluation Level of Assist On Stairs Independent Devices Stair Climbing Assistive Devices None Technique/Endurance Stair Climbing Direction Ascend and Descend Stair Climbing Technique Step Over Step Number of Steps Climbed 4 Stair Climbing Set # Repetitions (reps) 1 Comments Stair Climbing Comments Pain with descent, valgus at knees PT-OP-H Neuro Start: 12/01/23 17:56 Freq: Status: Active Protocol: Document 12/02/23 08:15 NM (Rec: 12/02/23 11:54 NM [id number]) Sensation Evaluation Gross Sensation Gross Sensation WNL Comments Summary Comments BLE intact to light touch sensation PT-OP-J Posture/Palpation/Skin Start: 12/01/23 17:56 Freq: Status: Active Protocol: Document 12/02/23 08:15 NM (Rec: 12/02/23 11:54 NM [id number]) Posture Evaluation Position Standing Head/C-Spine Posture Forward Head Pelvis Posture Anteriorly Tilted Weight Distribution Decreased Wt.Bear on (L) Hip Posture (L) Externally Rotated,(R) Externally Rotated Knee Posture (L) Genu Valgus,(R) Genu Valgus Patellar Posture (L) Superior,(R) Superior Foot Arch (L) Medium Arch,(R) Medium Arch Toe Posture (L) Flexed Toes,(R) Flexed Toes Palpation Assessment Location L knee Palpation Location medial knee Palpation Findings Soft Tissue Tightness, Tenderness Palpation Details Medial joint line tenderness PT-OP-K Range of Motion Start: 12/01/23 17:56 Freq: Status: Active Protocol: Document 12/28/23 07:31 NM (Rec: 12/28/23 08:52 NM [id number]) Knee Goniometric Range of Motion Knee Right Flexion Active (degrees) 140 Extension Active (degrees) 0 Left Flexion Active (degrees) 135 Extension Active (degrees) 3 Extension Passive (degrees) 0 Comments 12/28/23: 145 deg flex, 0 deg ext, no pain PT-OP-L Special Tests Start: 12/01/23 17:56 Freq: Status: Active Protocol: Document 12/02/23 08:15 NM (Rec: 12/02/23 11:54 NM [id number]) Special Tests Knee Special Tests Patellar Grind Test Test Results + Valgus Test Results - Comments 0, 30 deg Varus Test Results - Comments 0, 30 deg Posterior Draw Test Results - Posterior Sag Test Results - Nisa's Test Results - Anterior Draw Test Results - Apley's Compression Test Results + Kaela Test Test Results + PT-OP-M Strength Start: 12/01/23 17:56 Freq: Status: Active Protocol: Document 12/28/23 07:31 NM (Rec: 12/28/23 08:52 NM [id number]) Hip Strength Hip Manual Muscle Testing Left Flexion (L2) 4 Good Extension (S1) 4 Good Abduction 4 Good Adduction 4 Good External Rotation 4 Good Internal Rotation 4 Good Comments 12/28/23: 4+/5 hip ext, 4/5 hip abd, Knee Strength Knee Manual Muscle Testing Left Flexion (S2) 4 Good Extension (L3) 4 Good Comments no pain PT-OP-Q Treatments Start: 12/01/23 17:56 Freq: Status: Active Protocol: Document 01/10/24 08:07 AB (Rec: 01/10/24 09:02 AB [id number]) Therapeutic Exercises Supine Exercises hamstring stretch Supine Exercise Name from hooklying Side bilateral Reps/Minutes 2x60 Comments post manual therapy straight leg raise Side bilateral Reps/Minutes 2X10 Sidelying Exercises hip abduction Side bilateral Resistance light blue band Equipment Used level 2 teal band Reps/Minutes 2X15 Comments VC to decrease velocity Standing Exercises single leg squat Side bilateral Resistance level 2 teal Equipment Used mirror for visual cues Reps/Minutes 2X5 Comments Verbal cues for knee behind toes, buttocks back single leg lift to chair height Side bilateral Reps/Minutes X10 each LE Comments pt self verbal cues for avoiding hip drop 4 inch step up Side bilateral Equipment Used x10 Comments Patient reports having no pain glute med isometric Side bilateral Reps/Minutes one minute left and right LE Comments Verbal and visual cues side steps Standing Exercise Name initiated in PT, added to HEP Side bilateral Resistance lvl 3 tb around toes Reps/Minutes 3x15 ft ea direction Comments cued neutral toes, foot clearance, squat stance; fatiguing Manual Therapy Treatment Soft Tissue Mobilization left quad, peripatellar are and pes anserine area Mobilization Type Cross-Friction,Rolling Intensity/Depth Moderate Body Position Hooklying Comments Tenderness at L pes anserine Monitored for pain, performed prior to exercise left hamstring Body Location hamstring into proximal calf muscles this session Mobilization Type Cross-Friction,Rolling Intensity/Depth Moderate Body Position Prone Comments Tenderness and palpable nodule at medial distal hamstring insertion. performed with and without prone quad sets Performed prior to stretching, exercise Self-Care/Home Management Treatment Activities Self-Care/Home Management Activities progressed to level 2 Teal band for sidelying hip abduction with band PT-OP-T Assessment and Plan Start: 12/01/23 17:56 Freq: Status: Active Protocol: Document 01/10/24 08:07 AB (Rec: 01/10/24 09:02 AB [id number]) Physical Therapy Assessment Goals Five Impairment AROM Impairment L knee extension -3 deg Export Manager Goal (LTG) Pt will achieve L terminal knee extension AROM of 0 deg in order to demonstrate improved L knee stability during gait, stairs, and ADLs. 12/17/23: 0 deg TKE post mobilization 12/28/23: 0 deg knee ext LTG Duration 8 weeks MET Four Impairment activity Impairment pain with ambulation, hiking for 20 minutes Snf Goal (LTG) Pt will report that she is able to ambulate or hike at least 30 minutes with L knee pain <4/10 in order to demonstrate improved activity tolerance 12/28/23: Pt reports that she can ambulate/not hike for at least 30 minutes w/o pain LTG Duration 8 weeks PROGRESSING Three Impairment balance Impairment SLS 8 sec LLE Short Term Goal (STG) Pt will improve L single leg stance to at least 15 seconds in order to demonstrate improved L knee stability during gait and hiking 12/17/23: initiated in PT 15 sec SLS w prn wall support STG Duration 4 weeks PROGRESSING Snf Goal (LTG) Pt will improve L single leg stance to at least 20 seconds in order to demonstrate improved L knee stability during gait and hiking LTG Duration 8 weeks Two Impairment function Impairment 10 squats Short Term Goal (STG) Pt will be able to perform at least 10 bilateral squats with pain <3/10 and without compensation in order to demonstrate increased BLE strength and stability for gait, ADLs 12/17/23: initiated chair squat w band, no pain with depth 80 deg body weight squat 12/28/23: 10 squats without pain using band, increased depth to chair with hip hinge STG Duration 4 weeks MET Export Manager Goal (LTG) Pt will be able to perform at least 10 bilateral squats without pain and without compensation in order to demonstrate increased BLE strength and stability for gait, ADLs LTG Duration 8 weeks One Impairment sitting Impairment pain with sitting 15-20 minutes Snf Goal (LTG) Pt will report that she is able to sit for at least 1 hour without L knee pain due to ergonomic changes at her desk, more frequent breaks in order to demonstrate improved QOL and activity tolerance. 12/17/23: reports less knee pain with sitting, more frequent breaks/rests and improvement with exercise 12/28/23: Pt reports that she can sit at least 1 hr before taking a break due to pain LTG Duration 8 weeks PROGRESSING Assessment Summary Assessment Tia tolerated 4 inch step up without UE use left LE to day with no reports of increased pain. Physical Therapy Plan Frequency and Duration Frequency of Treatment 2x/Week Duration of treatment (weeks) 8 Plan of Care Start Date 12/02/23 Plan of Care End Date 01/28/24 Next Visit Focus/Plan Next Note Type Treatment Note Next Visit Plan Next session: single leg stability (RDL, balance, squat ), pain free TKE and step up, lateral step down ocus on end range quad strengthening without pain or pinching, trial of 4 inch step up stepback ( post manual therapy, HS stretch 3 way clock and glute med/ activation/side stepping with band ). Next session: hip 3 ways/clock, lateral step up, SLS/balance, RDL/deadlift Progress LAQ, retrain squat at limited depth, hip abduction glute strengthening, leg press? at low resistance education activity modification, gait training prn, Manual: patellar, STM, knee mob prn,
--- NOTE | 2024-01-12 11:41 | PT.OTN ---
Current Diagnoses Unilateral primary osteoarthritis, left knee (01/12/24) Weakness (01/12/24) Physical Therapy Treatment Note PT-OP-A Visit Information Start: 12/01/23 17:56 Freq: Status: Active Protocol: Document 01/12/24 07:30 NM (Rec: 01/12/24 08:16 NM [id number]) Out-Patient Physical Therapy Visit Information Visit Information Visit Type Treatment Note Visit Note 02/10 Visit Start Time 07:30 Visit Stop Time 08:12 Visit Number 13 Evaluation Information Evaluation Date 12/02/23 PT-OP-B Current Condition Start: 12/01/23 17:56 Freq: Status: Active Protocol: Document 12/02/23 08:15 NM (Rec: 12/02/23 11:54 NM [id number]) Current Condition History of Current Condition Onset Date 6 months ago Current Complaints stiffness, pain History of Current Condition Pt presents with L medial knee pain. Original ZOILA believed to have occured about 2 years ago, she twisted her knee getting off of a bar stool. About 6 months ago, she began to have increased stiffness in her knee with sitting, unable to walk without pain. Pain occurs with sitting 15-20 minutes, then initial 15-20 min of walking afterward. Stiffness and pain improve with movement overall. Imaging reveals degeneration. Pain occasionally occurs down the posterior knee. She is an avid hiker about 3-4x/wk, but is currently unable to hike due to pain. Her occupation requires sitting for long periods of time. Most knee pain when sitting at at desk ( max 4 hrs before get up);pain is also worse with unstable surfaces, with knee hyperextension. Reports no feelings of instability, just stiff and painful Prior Treatments and Tests October 2022 Radiograph: degeneration Prior Functional Status Baseline Function- ADL's Independent Baseline Function- Mobility Independent Baseline Function- Recreation/Hobbies hike 3-4x/wk Current Functional Impairments (Reported) Functional Limitations- Mobility/Gait sit 15-20 min then knee is painful, initial 20 min of walking Functional Limitations- Work/School Pain when sitting at her desk at work PT-OP-C Subjective Start: 12/01/23 17:56 Freq: Status: Active Protocol: Document 01/12/24 07:30 NM (Rec: 01/12/24 08:16 NM [id number]) OP-PT Subjective Patient Comments Patient Comments Pt recently got a standing desk, thinks it contributes to her knee pain on Wednesday. She felt good after last session, no pain or soreness. She has tenderness at L quad today. Overall, she reports that she feels better, daily has less pain; but unable to do 4 mile hike. States that she doesn't put enough effort into HEP PT-OP-D Balance Start: 12/01/23 17:56 Freq: Status: Active Protocol: Document 12/02/23 08:15 NM (Rec: 12/02/23 11:54 NM [id number]) Balance Tests Single Limb Standing Single Limb- Right 10 seconds Single Limb- Left 5 seconds; not painful but unstable Tandem Tandem Standing 8 seconds PT-OP-E Functional Tests Start: 12/01/23 17:56 Freq: Status: Active Protocol: Document 12/02/23 08:15 NM (Rec: 12/02/23 11:54 NM [id number]) Functional Tests Squat Test Score 10 squats Comments pain with depth, clicking, B valgus, hip rotation PT-OP-F Manual Assessment Start: 12/01/23 17:56 Freq: Status: Active Protocol: Document 12/02/23 08:15 NM (Rec: 12/02/23 11:54 NM [id number]) Manual Assessments Soft Tissue Assessment Soft Tissue Mobility Assessment Limited B hamstring length. Tenderness of medial knee muscles near joint line Joint Mobility Assessment Joint Mobility Assessment Increased clicking/popping with knee rotation, squatting. PT-OP-G Mobility & Gait Start: 12/01/23 17:56 Freq: Status: Active Protocol: Document 12/02/23 08:15 NM (Rec: 12/02/23 11:54 NM [id number]) OP Gait Assessment Gait Gait Assistance Required: Standby Assistance Distance (Feet) 200 Assistive Devices Assistive Device None Gait Deviations General Gait Pattern Antalgic Factors Limiting Gait Function Factors Limiting Gait Function Decreased Activity Tolerance, Decreased Strength,Pain Comments Gait Comments Decreased stance time LLE, no TKE. Antalgic Stair Climbing Evaluation Evaluation Level of Assist On Stairs Independent Devices Stair Climbing Assistive Devices None Technique/Endurance Stair Climbing Direction Ascend and Descend Stair Climbing Technique Step Over Step Number of Steps Climbed 4 Stair Climbing Set # Repetitions (reps) 1 Comments Stair Climbing Comments Pain with descent, valgus at knees PT-OP-H Neuro Start: 12/01/23 17:56 Freq: Status: Active Protocol: Document 12/02/23 08:15 NM (Rec: 12/02/23 11:54 NM [id number]) Sensation Evaluation Gross Sensation Gross Sensation WNL Comments Summary Comments BLE intact to light touch sensation PT-OP-J Posture/Palpation/Skin Start: 12/01/23 17:56 Freq: Status: Active Protocol: Document 12/02/23 08:15 NM (Rec: 12/02/23 11:54 NM [id number]) Posture Evaluation Position Standing Head/C-Spine Posture Forward Head Pelvis Posture Anteriorly Tilted Weight Distribution Decreased Wt.Bear on (L) Hip Posture (L) Externally Rotated,(R) Externally Rotated Knee Posture (L) Genu Valgus,(R) Genu Valgus Patellar Posture (L) Superior,(R) Superior Foot Arch (L) Medium Arch,(R) Medium Arch Toe Posture (L) Flexed Toes,(R) Flexed Toes Palpation Assessment Location L knee Palpation Location medial knee Palpation Findings Soft Tissue Tightness, Tenderness Palpation Details Medial joint line tenderness PT-OP-K Range of Motion Start: 12/01/23 17:56 Freq: Status: Active Protocol: Document 12/28/23 07:31 NM (Rec: 12/28/23 08:52 NM [id number]) Knee Goniometric Range of Motion Knee Right Flexion Active (degrees) 140 Extension Active (degrees) 0 Left Flexion Active (degrees) 135 Extension Active (degrees) 3 Extension Passive (degrees) 0 Comments 12/28/23: 145 deg flex, 0 deg ext, no pain PT-OP-L Special Tests Start: 12/01/23 17:56 Freq: Status: Active Protocol: Document 12/02/23 08:15 NM (Rec: 12/02/23 11:54 NM [id number]) Special Tests Knee Special Tests Patellar Grind Test Test Results + Valgus Test Results - Comments 0, 30 deg Varus Test Results - Comments 0, 30 deg Posterior Draw Test Results - Posterior Sag Test Results - Nisa's Test Results - Anterior Draw Test Results - Apley's Compression Test Results + Kaela Test Test Results + PT-OP-M Strength Start: 12/01/23 17:56 Freq: Status: Active Protocol: Document 12/28/23 07:31 NM (Rec: 12/28/23 08:52 NM [id number]) Hip Strength Hip Manual Muscle Testing Left Flexion (L2) 4 Good Extension (S1) 4 Good Abduction 4 Good Adduction 4 Good External Rotation 4 Good Internal Rotation 4 Good Comments 12/28/23: 4+/5 hip ext, 4/5 hip abd, Knee Strength Knee Manual Muscle Testing Left Flexion (S2) 4 Good Extension (L3) 4 Good Comments no pain PT-OP-Q Treatments Start: 12/01/23 17:56 Freq: Status: Active Protocol: Document 01/12/24 07:30 NM (Rec: 01/12/24 08:16 NM [id number]) Gym Equipment Shuttle Recovery unilateral squat Resistance 50# (2 [employer]) Reps/Time 2x10 bilateral squat Details pain free; good TKE w/o lock knee Resistance 75# ([employer]) Reps/Time 3x10 Therapeutic Exercises Standing Exercises lateral lunge Standing Exercise Name trialed in PT Side bilateral Resistance 5# db Reps/Minutes 1x15 Comments pain free split squat Standing Exercise Name trialed in PT; added to HEP Side bilateral Resistance AROM Reps/Minutes 1x12 Comments pain free; less knee valgus with reps slider Standing Exercise Name Y drill: 12, 5, 7 o'clock Side bilateral Resistance lvl 2 teal tb Equipment Used slider Reps/Minutes 1x10 Comments cued no hip drop, minimal knee valgus single leg lift to chair height Side bilateral Resistance AROM> 1x10 with 5# db opp hand Equipment Used to 16 step Reps/Minutes 1x12, 1x10 Comments cues to limit hip drop, min use of opp LE to stab, rhomboid facil Manual Therapy Treatment Soft Tissue Mobilization left quad, peripatellar are and pes anserine area Mobilization Type Cross-Friction,Rolling Intensity/Depth Moderate Body Position Hooklying Comments Minimal tenderness at L pes anserine, lateral quad. Monitored for pain, performed prior to exercise left hamstring Mobilization Type Cross-Friction,Rolling Intensity/Depth Moderate Body Position Sidelying Comments Less tenderness of distal hamstring today. Performed rolling distal>proximal with emphasis at tender portion distally PT-OP-T Assessment and Plan Start: 12/01/23 17:56 Freq: Status: Active Protocol: Document 01/12/24 07:30 NM (Rec: 01/12/24 08:16 NM [id number]) Physical Therapy Assessment Goals Five Impairment AROM Impairment L knee extension -3 deg Fdc Goal (LTG) Pt will achieve L terminal knee extension AROM of 0 deg in order to demonstrate improved L knee stability during gait, stairs, and ADLs. 12/17/23: 0 deg TKE post mobilization 12/28/23: 0 deg knee ext LTG Duration 8 weeks MET Four Impairment activity Impairment pain with ambulation, hiking for 20 minutes Fdc Goal (LTG) Pt will report that she is able to ambulate or hike at least 30 minutes with L knee pain <4/10 in order to demonstrate improved activity tolerance 12/28/23: Pt reports that she can ambulate/not hike for at least 30 minutes w/o pain LTG Duration 8 weeks PROGRESSING Three Impairment balance Impairment SLS 8 sec LLE Short Term Goal (STG) Pt will improve L single leg stance to at least 15 seconds in order to demonstrate improved L knee stability during gait and hiking 12/17/23: initiated in PT 15 sec SLS w prn wall support STG Duration 4 weeks PROGRESSING Header Up Goal (LTG) Pt will improve L single leg stance to at least 20 seconds in order to demonstrate improved L knee stability during gait and hiking LTG Duration 8 weeks Two Impairment function Impairment 10 squats Short Term Goal (STG) Pt will be able to perform at least 10 bilateral squats with pain <3/10 and without compensation in order to demonstrate increased BLE strength and stability for gait, ADLs 12/17/23: initiated chair squat w band, no pain with depth 80 deg body weight squat 12/28/23: 10 squats without pain using band, increased depth to chair with hip hinge STG Duration 4 weeks MET Header Up Goal (LTG) Pt will be able to perform at least 10 bilateral squats without pain and without compensation in order to demonstrate increased BLE strength and stability for gait, ADLs LTG Duration 8 weeks One Impairment sitting Impairment pain with sitting 15-20 minutes Fdc Goal (LTG) Pt will report that she is able to sit for at least 1 hour without L knee pain due to ergonomic changes at her desk, more frequent breaks in order to demonstrate improved QOL and activity tolerance. 12/17/23: reports less knee pain with sitting, more frequent breaks/rests and improvement with exercise 12/28/23: Pt reports that she can sit at least 1 hr before taking a break due to pain LTG Duration 8 weeks PROGRESSING Assessment Summary Assessment Pt tolerated session well, demos less pain with activity. Progressed bilateral and unilateral squat resistance on leg press. Progressed single leg RDL for increased knee stability; cued for neutral spine and to maintain level pelvis. Initiated Y drill with sliders; pt demos improved single leg stability with reps and increased glute activation. Trialed lateral lunges and split squat; pt pain free. Continues to have tenderness of L pes anserine and distal hamstring; tenderness and tightness improves with soft tissue mobilization. Pt would benefit from skilled PT for L knee stabilization and hip strengthening in order to improve activity tolerance and decrease pain symptoms. Physical Therapy Plan Frequency and Duration Frequency of Treatment 2x/Week Duration of treatment (weeks) 8 Plan of Care Start Date 12/02/23 Plan of Care End Date 01/28/24 Therapeutic Interventions Therapeutic Interventions Aquatic Therapy,Balance Training,Coordination Training ,Gait Training,Home Exercise Program,Joint Mobilizations, Manual Therapy,Neuromuscular Re-education,Orthotic/ Prosthetic Management,Patient/ Caregiver Education,Self-Care/ Home Management,Sensory Integration,Soft Tissue Mobilization,Taping, Therapeutic Activities, Therapeutic Exercises Modalities Cold Pack/Ice Massage,Electric Stimulation,Hot Packs, Ultrasound,Vasopneumatic Devices Next Visit Focus/Plan Next Note Type Progress Note Next Visit Plan Next session: single leg stability (RDL, balance, squat ), pain free TKE and step up, lateral step down ocus on end range quad strengthening without pain or pinching, trial of 4 inch step up stepback ( post manual therapy, HS stretch 3 way clock and glute med/ activation/side stepping with band ). Next session: hip 3 ways/clock, lateral step up, SLS/balance, RDL/deadlift Progress LAQ, retrain squat at limited depth, hip abduction glute strengthening, leg press? at low resistance education activity modification, gait training prn, Manual: patellar, STM, knee mob prn,
--- NOTE | 2024-01-25 15:45 | PT.OTN ---
Current Diagnoses Unilateral primary osteoarthritis, left knee (01/25/24) Weakness (01/25/24) Physical Therapy Treatment Note PT-OP-A Visit Information Start: 12/01/23 17:56 Freq: Status: Active Protocol: Document 01/25/24 13:00 NM (Rec: 01/25/24 13:46 NM [id number]) Out-Patient Physical Therapy Visit Information Visit Information Visit Type Progress Note Visit Note Visit Start Time 13:01 Visit Stop Time 13:44 Visit Number 14 Evaluation Information Evaluation Date 12/02/23 Precautions Precautions No twisting, limit squat depth and unstable surfaces PT-OP-B Current Condition Start: 12/01/23 17:56 Freq: Status: Active Protocol: Document 12/02/23 08:15 NM (Rec: 12/02/23 11:54 NM [id number]) Current Condition History of Current Condition Onset Date 6 months ago Current Complaints stiffness, pain History of Current Condition Pt presents with L medial knee pain. Original ZOILA believed to have occured about 2 years ago, she twisted her knee getting off of a bar stool. About 6 months ago, she began to have increased stiffness in her knee with sitting, unable to walk without pain. Pain occurs with sitting 15-20 minutes, then initial 15-20 min of walking afterward. Stiffness and pain improve with movement overall. Imaging reveals degeneration. Pain occasionally occurs down the posterior knee. She is an avid hiker about 3-4x/wk, but is currently unable to hike due to pain. Her occupation requires sitting for long periods of time. Most knee pain when sitting at at desk ( max 4 hrs before get up);pain is also worse with unstable surfaces, with knee hyperextension. Reports no feelings of instability, just stiff and painful Prior Treatments and Tests October 2022 Radiograph: degeneration Prior Functional Status Baseline Function- ADL's Independent Baseline Function- Mobility Independent Baseline Function- Recreation/Hobbies hike 3-4x/wk Current Functional Impairments (Reported) Functional Limitations- Mobility/Gait sit 15-20 min then knee is painful, initial 20 min of walking Functional Limitations- Work/School Pain when sitting at her desk at work PT-OP-C Subjective Start: 12/01/23 17:56 Freq: Status: Active Protocol: Document 01/25/24 13:00 NM (Rec: 01/25/24 13:46 NM [id number]) OP-PT Subjective Patient Comments Patient Comments Pt reports overall her L knee is better. States less intense pain overall after sitting. She continues to have pain overall. Did not perform HEP over her break. States walked about 5 miles, which was achy; also sat on plane for several hours, which didn't help. PT-OP-D Balance Start: 12/01/23 17:56 Freq: Status: Active Protocol: Document 12/02/23 08:15 NM (Rec: 12/02/23 11:54 NM [id number]) Balance Tests Single Limb Standing Single Limb- Right 10 seconds Single Limb- Left 5 seconds; not painful but unstable Tandem Tandem Standing 8 seconds PT-OP-E Functional Tests Start: 12/01/23 17:56 Freq: Status: Active Protocol: Document 12/02/23 08:15 NM (Rec: 12/02/23 11:54 NM [id number]) Functional Tests Squat Test Score 10 squats Comments pain with depth, clicking, B valgus, hip rotation PT-OP-F Manual Assessment Start: 12/01/23 17:56 Freq: Status: Active Protocol: Document 12/02/23 08:15 NM (Rec: 12/02/23 11:54 NM [id number]) Manual Assessments Soft Tissue Assessment Soft Tissue Mobility Assessment Limited B hamstring length. Tenderness of medial knee muscles near joint line Joint Mobility Assessment Joint Mobility Assessment Increased clicking/popping with knee rotation, squatting. PT-OP-G Mobility & Gait Start: 12/01/23 17:56 Freq: Status: Active Protocol: Document 12/02/23 08:15 NM (Rec: 12/02/23 11:54 NM [id number]) OP Gait Assessment Gait Gait Assistance Required: Standby Assistance Distance (Feet) 200 Assistive Devices Assistive Device None Gait Deviations General Gait Pattern Antalgic Factors Limiting Gait Function Factors Limiting Gait Function Decreased Activity Tolerance, Decreased Strength,Pain Comments Gait Comments Decreased stance time LLE, no TKE. Antalgic Stair Climbing Evaluation Evaluation Level of Assist On Stairs Independent Devices Stair Climbing Assistive Devices None Technique/Endurance Stair Climbing Direction Ascend and Descend Stair Climbing Technique Step Over Step Number of Steps Climbed 4 Stair Climbing Set # Repetitions (reps) 1 Comments Stair Climbing Comments Pain with descent, valgus at knees PT-OP-H Neuro Start: 12/01/23 17:56 Freq: Status: Active Protocol: Document 12/02/23 08:15 NM (Rec: 12/02/23 11:54 NM [id number]) Sensation Evaluation Gross Sensation Gross Sensation WNL Comments Summary Comments BLE intact to light touch sensation PT-OP-J Posture/Palpation/Skin Start: 12/01/23 17:56 Freq: Status: Active Protocol: Document 12/02/23 08:15 NM (Rec: 12/02/23 11:54 NM [id number]) Posture Evaluation Position Standing Head/C-Spine Posture Forward Head Pelvis Posture Anteriorly Tilted Weight Distribution Decreased Wt.Bear on (L) Hip Posture (L) Externally Rotated,(R) Externally Rotated Knee Posture (L) Genu Valgus,(R) Genu Valgus Patellar Posture (L) Superior,(R) Superior Foot Arch (L) Medium Arch,(R) Medium Arch Toe Posture (L) Flexed Toes,(R) Flexed Toes Palpation Assessment Location L knee Palpation Location medial knee Palpation Findings Soft Tissue Tightness, Tenderness Palpation Details Medial joint line tenderness PT-OP-K Range of Motion Start: 12/01/23 17:56 Freq: Status: Active Protocol: Document 01/25/24 13:00 NM (Rec: 01/25/24 13:46 NM [id number]) Knee Goniometric Range of Motion Knee Right Flexion Active (degrees) 140 Extension Active (degrees) 0 Left Flexion Active (degrees) 145 Extension Active (degrees) 1 Extension Passive (degrees) 0 Comments IE: 135 deg flex, -3 deg ext AROM, 0 ext PROM 12/28/23: 145 deg flex, 0 deg ext, no pain 01/25/24: 145 deg flex, -1 deg extension; reports pulling with extension PT-OP-L Special Tests Start: 12/01/23 17:56 Freq: Status: Active Protocol: Document 12/02/23 08:15 NM (Rec: 12/02/23 11:54 NM [id number]) Special Tests Knee Special Tests Patellar Grind Test Test Results + Valgus Test Results - Comments 0, 30 deg Varus Test Results - Comments 0, 30 deg Posterior Draw Test Results - Posterior Sag Test Results - Nisa's Test Results - Anterior Draw Test Results - Apley's Compression Test Results + Kaela Test Test Results + PT-OP-M Strength Start: 12/01/23 17:56 Freq: Status: Active Protocol: Document 01/25/24 13:00 NM (Rec: 01/25/24 13:46 NM [id number]) Hip Strength Hip Manual Muscle Testing Left Flexion (L2) 4 Good Extension (S1) 4 Good Abduction 4 Good Adduction 4 Good External Rotation 4 Good Internal Rotation 4 Good Comments 12/28/23: 4+/5 hip ext, 4/5 hip abd, 01/25/24: 4+/5 Knee Strength Knee Manual Muscle Testing Left Flexion (S2) 4 Good Extension (L3) 4 Good Comments no pain 01/25/24: 4+/5 PT-OP-Q Treatments Start: 12/01/23 17:56 Freq: Status: Active Protocol: Document 01/25/24 13:00 NM (Rec: 01/25/24 13:46 NM [id number]) Therapeutic Exercises Supine Exercises hamstring stretch Supine Exercise Name from hooklying Side bilateral Reps/Minutes 2x60 Comments pain free Standing Exercises lateral lunge Standing Exercise Name HEP review Side bilateral Resistance 5# db Reps/Minutes 2x10 Comments pain free; cued knee remain behind toes, upright posture split squat Standing Exercise Name HEP review Side bilateral Resistance AROM Reps/Minutes 1x12 Comments cued for knee valgus; pain free, balance challenged slider Standing Exercise Name Y drill: 12, 5, 7 o'clock Side bilateral Resistance lvl 2 teal tb thighs Equipment Used slider Reps/Minutes 1x12 Comments cued no hip drop, minimal knee valgus; cued TYLER over midfoot single leg squat Side bilateral Equipment Used mirror for visual cues, chair for finger support Reps/Minutes 1x8 Comments cues for no knee valgus, increased glute w/ hip hinge, lvl hips single leg lift to chair height Standing Exercise Name double leg RDL today d/t fatigue at end of session Side bilateral Resistance 5# db in opp hand Equipment Used to 12 step Reps/Minutes 2x10 Comments cued rhomboid facil, core stabilization squat Standing Exercise Name for goals Side bilateral Resistance AROM Equipment Used mirror for feedback Reps/Minutes 1x10 Comments pain free; demos slight R rot at hips w/ inc depth w/ fatigue PT-OP-T Assessment and Plan Start: 12/01/23 17:56 Freq: Status: Active Protocol: Document 01/25/24 13:00 NM (Rec: 01/25/24 13:46 NM [id number]) Physical Therapy Assessment Goals Five Impairment AROM Impairment L knee extension -3 deg Group Home Goal (LTG) Pt will achieve L terminal knee extension AROM of 0 deg in order to demonstrate improved L knee stability during gait, stairs, and ADLs. 12/17/23: 0 deg TKE post mobilization 12/28/23: 0 deg knee ext LTG Duration 8 weeks MET Four Impairment activity Impairment pain with ambulation, hiking for 20 minutes Group Home Goal (LTG) Pt will report that she is able to ambulate or hike at least 30 minutes with L knee pain <4/10 in order to demonstrate improved activity tolerance 12/28/23: Pt reports that she can ambulate/not hike for at least 30 minutes w/o pain 01/25/24: reports that 30 minutes, 3/10 pain in L knee LTG Duration 8 weeks PARTIALLY MET Three Impairment balance Impairment SLS 8 sec LLE Short Term Goal (STG) Pt will improve L single leg stance to at least 15 seconds in order to demonstrate improved L knee stability during gait and hiking 12/17/23: initiated in PT 15 sec SLS w prn wall support STG Duration 4 weeks PROGRESSING Senior Planning Manager Goal (LTG) Pt will improve L single leg stance to at least 20 seconds in order to demonstrate improved L knee stability during gait and hiking 01/25/24: 30 seconds BLE w/o pain or instability LTG Duration 8 weeks MET Two Impairment function Impairment 10 squats Short Term Goal (STG) Pt will be able to perform at least 10 bilateral squats with pain <3/10 and without compensation in order to demonstrate increased BLE strength and stability for gait, ADLs 12/17/23: initiated chair squat w band, no pain with depth 80 deg body weight squat 12/28/23: 10 squats without pain using band, increased depth to chair with hip hinge STG Duration 4 weeks MET Senior Planning Manager Goal (LTG) Pt will be able to perform at least 10 bilateral squats without pain and without compensation in order to demonstrate increased BLE strength and stability for gait, ADLs 01/25/24: 10 reps, popping in RLE but no LLE, no pain in L knee LTG Duration 8 weeks MET One Impairment sitting Impairment pain with sitting 15-20 minutes Senior Planning Manager Goal (LTG) Pt will report that she is able to sit for at least 1 hour without L knee pain due to ergonomic changes at her desk, more frequent breaks in order to demonstrate improved QOL and activity tolerance. 12/17/23: reports less knee pain with sitting, more frequent breaks/rests and improvement with exercise 12/28/23: Pt reports that she can sit at least 1 hr before taking a break due to pain 01/25/24: can sit for several hours now with no knee pain, 4 -5 hours with only 2/10 pain LTG Duration 8 weeks MET Progress Towards Goals Progress Towards Goals Progressing Toward Goals,Goals Met Progress Comments Met all goals related to ROM, strength. Partially met activity goal related to ambulation/hiking/recreational activities Assessment Summary Assessment Pt fatigued at end of session after not performing activities for several weeks due to work trip. Demos good effort with activity. States no increased pain at end of session, has burning sensation at medial knee. Pt challenged by single leg activities today, requiring more cues for hip hinge, maintain level hips, and to limit knee valgus . Pt demos improvements in L knee stability and quad control compared to previous sessions with static single leg activities. Physical Therapy Plan Frequency and Duration Frequency of Treatment 2x/Week Duration of treatment (weeks) 8 Plan of Care Start Date 12/02/23 Plan of Care End Date 01/28/24 Therapeutic Interventions Therapeutic Interventions Aquatic Therapy,Balance Training,Coordination Training ,Gait Training,Home Exercise Program,Joint Mobilizations, Manual Therapy,Neuromuscular Re-education,Orthotic/ Prosthetic Management,Patient/ Caregiver Education,Self-Care/ Home Management,Sensory Integration,Soft Tissue Mobilization,Taping, Therapeutic Activities, Therapeutic Exercises Modalities Cold Pack/Ice Massage,Electric Stimulation,Hot Packs, Ultrasound,Vasopneumatic Devices Next Visit Focus/Plan Next Note Type Discharge Summary Next Visit Plan Next session: single leg stability (RDL, balance, squat ), pain free TKE and step up, lateral step down ocus on end range quad strengthening without pain or pinching, trial of 4 inch step up stepback ( post manual therapy, HS stretch 3 way clock and glute med/ activation/side stepping with band ). Next session: hip 3 ways/clock, lateral step up, SLS/balance, RDL/deadlift Progress LAQ, retrain squat at limited depth, hip abduction glute strengthening, leg press? at low resistance education activity modification, gait training prn, Manual: patellar, STM, knee mob prn,
--- NOTE | 2024-01-26 15:30 | PT.OTN ---
Current Diagnoses Unilateral primary osteoarthritis, left knee (01/26/24) Weakness (01/26/24) Physical Therapy Treatment Note PT-OP-A Visit Information Start: 12/01/23 17:56 Freq: Status: Active Protocol: Document 01/26/24 14:36 NM (Rec: 01/26/24 15:28 NM [id number]) Out-Patient Physical Therapy Visit Information Visit Information Visit Type Discharge Summary Visit Note Visit Start Time 14:36 Visit Stop Time 15:15 Visit Number 15 Evaluation Information Evaluation Date 12/02/23 PT-OP-B Current Condition Start: 12/01/23 17:56 Freq: Status: Active Protocol: Document 12/02/23 08:15 NM (Rec: 12/02/23 11:54 NM [id number]) Current Condition History of Current Condition Onset Date 6 months ago Current Complaints stiffness, pain History of Current Condition Pt presents with L medial knee pain. Original ZOILA believed to have occured about 2 years ago, she twisted her knee getting off of a bar stool. About 6 months ago, she began to have increased stiffness in her knee with sitting, unable to walk without pain. Pain occurs with sitting 15-20 minutes, then initial 15-20 min of walking afterward. Stiffness and pain improve with movement overall. Imaging reveals degeneration. Pain occasionally occurs down the posterior knee. She is an avid hiker about 3-4x/wk, but is currently unable to hike due to pain. Her occupation requires sitting for long periods of time. Most knee pain when sitting at at desk ( max 4 hrs before get up);pain is also worse with unstable surfaces, with knee hyperextension. Reports no feelings of instability, just stiff and painful Prior Treatments and Tests October 2022 Radiograph: degeneration Prior Functional Status Baseline Function- ADL's Independent Baseline Function- Mobility Independent Baseline Function- Recreation/Hobbies hike 3-4x/wk Current Functional Impairments (Reported) Functional Limitations- Mobility/Gait sit 15-20 min then knee is painful, initial 20 min of walking Functional Limitations- Work/School Pain when sitting at her desk at work PT-OP-C Subjective Start: 12/01/23 17:56 Freq: Status: Active Protocol: Document 01/26/24 14:36 NM (Rec: 01/26/24 15:28 NM [id number]) OP-PT Subjective Patient Comments Patient Comments Pt reports soreness. Wanting to discharge today. Continues to want further assessment for L knee. Biked for 7 miles yesterday w/o knee pain PT-OP-D Balance Start: 12/01/23 17:56 Freq: Status: Active Protocol: Document 12/02/23 08:15 NM (Rec: 12/02/23 11:54 NM [id number]) Balance Tests Single Limb Standing Single Limb- Right 10 seconds Single Limb- Left 5 seconds; not painful but unstable Tandem Tandem Standing 8 seconds PT-OP-E Functional Tests Start: 12/01/23 17:56 Freq: Status: Active Protocol: Document 12/02/23 08:15 NM (Rec: 12/02/23 11:54 NM [id number]) Functional Tests Squat Test Score 10 squats Comments pain with depth, clicking, B valgus, hip rotation PT-OP-F Manual Assessment Start: 12/01/23 17:56 Freq: Status: Active Protocol: Document 12/02/23 08:15 NM (Rec: 12/02/23 11:54 NM [id number]) Manual Assessments Soft Tissue Assessment Soft Tissue Mobility Assessment Limited B hamstring length. Tenderness of medial knee muscles near joint line Joint Mobility Assessment Joint Mobility Assessment Increased clicking/popping with knee rotation, squatting. PT-OP-G Mobility & Gait Start: 12/01/23 17:56 Freq: Status: Active Protocol: Document 12/02/23 08:15 NM (Rec: 12/02/23 11:54 NM [id number]) OP Gait Assessment Gait Gait Assistance Required: Standby Assistance Distance (Feet) 200 Assistive Devices Assistive Device None Gait Deviations General Gait Pattern Antalgic Factors Limiting Gait Function Factors Limiting Gait Function Decreased Activity Tolerance, Decreased Strength,Pain Comments Gait Comments Decreased stance time LLE, no TKE. Antalgic Stair Climbing Evaluation Evaluation Level of Assist On Stairs Independent Devices Stair Climbing Assistive Devices None Technique/Endurance Stair Climbing Direction Ascend and Descend Stair Climbing Technique Step Over Step Number of Steps Climbed 4 Stair Climbing Set # Repetitions (reps) 1 Comments Stair Climbing Comments Pain with descent, valgus at knees PT-OP-H Neuro Start: 12/01/23 17:56 Freq: Status: Active Protocol: Document 12/02/23 08:15 NM (Rec: 12/02/23 11:54 NM [id number]) Sensation Evaluation Gross Sensation Gross Sensation WNL Comments Summary Comments BLE intact to light touch sensation PT-OP-J Posture/Palpation/Skin Start: 12/01/23 17:56 Freq: Status: Active Protocol: Document 12/02/23 08:15 NM (Rec: 12/02/23 11:54 NM [id number]) Posture Evaluation Position Standing Head/C-Spine Posture Forward Head Pelvis Posture Anteriorly Tilted Weight Distribution Decreased Wt.Bear on (L) Hip Posture (L) Externally Rotated,(R) Externally Rotated Knee Posture (L) Genu Valgus,(R) Genu Valgus Patellar Posture (L) Superior,(R) Superior Foot Arch (L) Medium Arch,(R) Medium Arch Toe Posture (L) Flexed Toes,(R) Flexed Toes Palpation Assessment Location L knee Palpation Location medial knee Palpation Findings Soft Tissue Tightness, Tenderness Palpation Details Medial joint line tenderness PT-OP-K Range of Motion Start: 12/01/23 17:56 Freq: Status: Active Protocol: Document 01/26/24 14:36 NM (Rec: 01/26/24 15:28 NM [id number]) Knee Goniometric Range of Motion Knee Left Flexion Active (degrees) 145 Extension Active (degrees) 1 Extension Passive (degrees) 0 Comments IE: 135 deg flex, -3 deg ext AROM, 0 ext PROM 12/28/23: 145 deg flex, 0 deg ext, no pain 01/25/24: 145 deg flex, -1 deg extension; reports pulling with extension PT-OP-L Special Tests Start: 12/01/23 17:56 Freq: Status: Active Protocol: Document 12/02/23 08:15 NM (Rec: 12/02/23 11:54 NM [id number]) Special Tests Knee Special Tests Patellar Grind Test Test Results + Valgus Test Results - Comments 0, 30 deg Varus Test Results - Comments 0, 30 deg Posterior Draw Test Results - Posterior Sag Test Results - Nisa's Test Results - Anterior Draw Test Results - Apley's Compression Test Results + Kaela Test Test Results + PT-OP-M Strength Start: 12/01/23 17:56 Freq: Status: Active Protocol: Document 01/26/24 14:36 NM (Rec: 01/26/24 15:28 NM [id number]) Knee Strength Knee Manual Muscle Testing Left Flexion (S2) 4 Good Extension (L3) 4 Good Comments no pain 01/25/24: 4+/5 PT-OP-Q Treatments Start: 12/01/23 17:56 Freq: Status: Active Protocol: Document 01/26/24 14:36 NM (Rec: 01/26/24 15:28 NM [id number]) Cardio Equipment Elliptical Duration (Minutes) 4 Resistance 4 Other warm up; pain free, good lateral translation Therapeutic Exercises Standing Exercises step up Standing Exercise Name 6 with hip flex Side bilateral Reps/Minutes 2x10 Comments pain free with step up, good ankle stability split squat Standing Exercise Name rear elevated split squat Side bilateral Resistance AROM, 5# db held in front Equipment Used 24 box Reps/Minutes 1x15 Comments challenging w/ stability, no pain single leg lift to chair height Standing Exercise Name single leg RDL Side bilateral Resistance 5# db in opp hand Equipment Used to 12 step Reps/Minutes 2x10 Comments cued rhomboid facil, core stab ; improved ankle stab Other Exercises Foam roller Other Exercise Name HS, glutes, quads, calves Side bilateral Equipment Used mat on ground Reps/Minutes 3 minutes Comments for soreness, warm up at beginning of session Neuro Re-Education Treatment Balance Activities BOSU squat Surface unstable; blue side up Reps/Duration 2x12 Comments pain free. Challenged with stability. cued for more glute with hip hinge, center TYLER over midfoot, no knee valgus rocker board Comments 1. A/P ball toss, 1 minute, BLE 2. M/L ball toss, 1 minute, BLE 3. A/P single leg stance, 30 sec ea leg 4. M/L single leg stance, 30 sec ea leg Pain free with all SLS Details with ball toss: 1. fwd toss, 2 . lateral toss Surface stable Equipment trampoline, red weighted ball Reps/Duration 2x15 ea Comments pain free Cued slight knee flexion for stability. Good ankle strategy , prn foot placement down to prevent LOB. No knee twisting with lateral toss, only trunk rotation Self-Care/Home Management Treatment Education Patient Education Home Exercise Program,Pain Management Other Education HEP: rear elevated split squat , single leg stance ball toss fwd and lateral on stable surface (ok to progress to unstable without twisting knee if no LOB). Pt verbalizes agreement Education on modalities and activity modification to help manage pain if L knee pain returns/persists PT-OP-T Assessment and Plan Start: 12/01/23 17:56 Freq: Status: Active Protocol: Document 01/26/24 14:36 NM (Rec: 01/26/24 15:28 NM [id number]) Physical Therapy Assessment Goals Five Impairment AROM Impairment L knee extension -3 deg Mig Welder Goal (LTG) Pt will achieve L terminal knee extension AROM of 0 deg in order to demonstrate improved L knee stability during gait, stairs, and ADLs. 12/17/23: 0 deg TKE post mobilization 12/28/23: 0 deg knee ext LTG Duration 8 weeks MET Four Impairment activity Impairment pain with ambulation, hiking for 20 minutes Mig Welder Goal (LTG) Pt will report that she is able to ambulate or hike at least 30 minutes with L knee pain <4/10 in order to demonstrate improved activity tolerance 12/28/23: Pt reports that she can ambulate/not hike for at least 30 minutes w/o pain 01/25/24: reports that 30 minutes, 3/10 pain in L knee LTG Duration 8 weeks PARTIALLY MET Three Impairment balance Impairment SLS 8 sec LLE Short Term Goal (STG) Pt will improve L single leg stance to at least 15 seconds in order to demonstrate improved L knee stability during gait and hiking 12/17/23: initiated in PT 15 sec SLS w prn wall support STG Duration 4 weeks PROGRESSING Half-Way Goal (LTG) Pt will improve L single leg stance to at least 20 seconds in order to demonstrate improved L knee stability during gait and hiking 01/25/24: 30 seconds BLE w/o pain or instability LTG Duration 8 weeks MET Two Impairment function Impairment 10 squats Short Term Goal (STG) Pt will be able to perform at least 10 bilateral squats with pain <3/10 and without compensation in order to demonstrate increased BLE strength and stability for gait, ADLs 12/17/23: initiated chair squat w band, no pain with depth 80 deg body weight squat 12/28/23: 10 squats without pain using band, increased depth to chair with hip hinge STG Duration 4 weeks MET Mig Welder Goal (LTG) Pt will be able to perform at least 10 bilateral squats without pain and without compensation in order to demonstrate increased BLE strength and stability for gait, ADLs 01/25/24: 10 reps, popping in RLE but no LLE, no pain in L knee LTG Duration 8 weeks MET One Impairment sitting Impairment pain with sitting 15-20 minutes Half-Way Goal (LTG) Pt will report that she is able to sit for at least 1 hour without L knee pain due to ergonomic changes at her desk, more frequent breaks in order to demonstrate improved QOL and activity tolerance. 12/17/23: reports less knee pain with sitting, more frequent breaks/rests and improvement with exercise 12/28/23: Pt reports that she can sit at least 1 hr before taking a break due to pain 01/25/24: can sit for several hours now with no knee pain, 4 -5 hours with only 2/10 pain LTG Duration 8 weeks MET Progress Towards Goals Progress Towards Goals Progressing Toward Goals,Goals Met Progress Comments Met all goals related to ROM, strength. Partially met activity goal related to ambulation/hiking/recreational activities Assessment Summary Assessment Pt tolerated session well without any increase in L knee pain; demos good effort and fatigued at end of session. Compared to last session, pt demos improved L knee and ankle stability with single leg activities and dynamic strengthening. Progressed split squat to rear elevated for greater glute activation; pt has crepitus in B knees but pain free. Pain free with 6 step ups, able to progress to dynamic single leg stabilization with open chain hip flexion. Initiated single leg balance ball toss against trampoline for stability; pt able to perform pain free forward and laterally without twisting, occasionally putting opposite foot down for stability. Pt demos improved single leg stance, all pain free, while on both stable and unstable surfaces. Has occasional need to place opposite foot down but no knee valgus or increase sway. Physical Therapy Plan Frequency and Duration Frequency of Treatment 2x/Week Duration of treatment (weeks) 8 Plan of Care Start Date 12/02/23 Plan of Care End Date 01/28/24 Therapeutic Interventions Therapeutic Interventions Aquatic Therapy,Balance Training,Coordination Training ,Gait Training,Home Exercise Program,Joint Mobilizations, Manual Therapy,Neuromuscular Re-education,Orthotic/ Prosthetic Management,Patient/ Caregiver Education,Self-Care/ Home Management,Sensory Integration,Soft Tissue Mobilization,Taping, Therapeutic Activities, Therapeutic Exercises Modalities Cold Pack/Ice Massage,Electric Stimulation,Hot Packs, Ultrasound,Vasopneumatic Devices Discharge Physical Therapy Discharge Reasons Patient Request Discharge Comments Goals met except 1. Pt requesting discharge and referral back to PCP for further imaging and ortho assessment. Next Visit Focus/Plan Next Visit Plan Discharge from PT services
== END 2024-01-31 13:59 | disposition home or self-care (01) ==
LOC: PHYS 14:30
PROVIDERS: Family Provider Family Medicine; PCP Family Medicine; Referring Provider Family Medicine; Visit Provider Family Medicine
DX: M17.12 Unilateral primary osteoarthritis, left knee (principal); R53.1 Weakness
CPT/HCPCS: 97110; 97112; 97140; 97161; 97535